=== PATIENT | male | born 1985 | race Caucasian/White ===

== ENCOUNTER 2017-05-18 15:24 | Inpatient (IN) | payer MEDICAID ==
[~2017-05-18] VITALS: Ht 175.3 cm; Wt 78.2 kg
[2017-05-18] MEDS ORDERED: LORAZEPAM 2MG/ML CPJ IV STA (15:56)
[2017-05-18] MEDS ORDERED: SODIUM CHLORIDE 0.9% 1,000 ML IV ONE (15:56)
[2017-05-18] MEDS ORDERED: LORAZEPAM 2MG/ML CPJ IV ONE ×2 (16:15→19:15)
[2017-05-18 16:22] LABS: CLARITY URINE CLEAR (CLEAR); COLOR URINE YELLOW (YELLOW); KETONES URINE 2+ (NEGATIVE); LEUKOCYTE ESTERASE URINE NEGATIVE (NEGATIVE); NITRITE URINE NEGATIVE (NEGATIVE); OCCULT BLOOD URINE NEGATIVE (NEGATIVE); PH URINE 7.5 (4.5-8.0); PROTEIN URINE 2+ (NEGATIVE)
[2017-05-18 16:34] LABS: *AMPHETAMINES SCREEN URINE NEGATIVE (NEGATIVE); *BARBITURATES SCREEN URINE NEGATIVE (NEGATIVE); *BENZODIAZEPINES SCREEN URINE NEGATIVE (NEGATIVE); *COCAINE SCREEN URINE NEGATIVE (NEGATIVE); CANNABINOID URINE SCREEN PRESUMTIVE POSITIVE (NEGATIVE); METHADONE URINE SCREEN NEGATIVE (NEGATIVE); PHENCYCLIDINE URINE SCREEN NEGATIVE (NEGATIVE)
[2017-05-18 16:36] LABS: BASOPHILS % 0.5 % (0.0-2.0); HEMATOCRIT. 46.6 % (42.0-52.0); HEMOGLOBIN. 15.8 g/dL (14.0-18.0); LYMPHOCYTES % 10.2 % (20.0-50.0); MEAN CORPUSCULAR HEMOGLOBIN 29.2 pg (28.0-32.0); MEAN CORPUSCULAR VOLUME 86.4 fL (80.0-94.0); MEAN PLATELET VOLUME 9.1 fl (7.4-10.4); MONOCYTES % 7.3 % (2.0-8.0); PLATELET 199 x1000/uL (130-400); RED BLOOD CELL COUNT 5.39 mill/uL (4.7-6.1); RED CELL DISTRIBUTION WIDTH 13.5 % (11.6-14.6)
[2017-05-18 16:42] LABS: BG BASE EXCESS 0.1 mmol/L (-2.0-2.0); BG CARBOXYHEMOGLOBIN 0.7 % (0.5-1.5); BG DEOXYHEMOGLOBIN 1.1 % (0.0-5.0); BG FRACTION INSPIRED OXYGEN 21; BG HCO3 ACT 17.6 mmol/L (22.0-26.0); BG METHEMOGLOBIN 0.5 % (0.0-1.5); BG OXYGEN SATURATION 98.9 % (92.0-98.5); BG OXYHEMOGLOBIN 97.7 % (94.0-97.0); BG PCO2 16.8 mmHg (35.0-45.0); BG PH 7.638 (7.350-7.450); BG PO2 130.3 mmHg (75.0-100.0); BG SAMPLE SITE LEFT BRACHIAL; BG TOTAL HEMOGLOBIN 16.1 g/dL (12.0-18.0); BG VENT MODE ROOM AIR
[2017-05-18 16:51] LABS: CARBON DIOXIDE 21 mEq/L (21-32); CHLORIDE 95 mEq/L (98-107); ETHANOL BLOOD 79 mg/dL; TROPONIN I < 0.02 ng/mL (0.00-0.04)
[2017-05-18 16:57] LABS: OPIATES URINE SCREEN NEGATIVE (NEGATIVE)
[2017-05-18 17:13] LABS: AMMONIA 53 uMol/L (<32)
[2017-05-18] MEDS ORDERED: ONDANSETRON HCL 4MG/2ML VIAL IV ONE ×2 (17:30→19:15)
[2017-05-18] MEDS ORDERED: KETOROLAC 30MG/ML VIAL IV ONE (17:30)
[2017-05-18] MEDS ORDERED: FOLIC ACID 1 MG, THIAMINE HCL 100 MG, MVI, ADULT NO.1 10 ML in DEXTROSE 5% WATER 1,000 ML IV ONE ×4 (19:30)
[2017-05-18] MEDS ORDERED: ONDANSETRON HCL 4MG/2ML VIAL IV PRN (22:00)
[2017-05-18] MEDS ORDERED: MAGNESIUM/ALUMINUM HYDROXIDE/SIMETHICONE 30ML UDC PO PRN (22:00)
[2017-05-18] MEDS ORDERED: CLONIDINE 0.1MG TABLET PO PRN (22:00)
[2017-05-18] MEDS ORDERED: ACETAMINOPHEN 325MG TABLET PO PRN (22:00)
[2017-05-18] MEDS ORDERED: LORAZEPAM 2MG/ML CPJ IV PRN (22:00)
[2017-05-18] MEDS ORDERED: IPRATROPIUM/ALBUTEROL 0.5-3(2.5)MG/3ML NEB INH PRN (22:00)
[2017-05-18] MEDS: CHLORDIAZEPOXIDE 25MG CAPSULE PO SCH (22:20)
[2017-05-18] MEDS: MORPHINE SULFATE 4 MG/ML CPJ (NOT FOR IM USE) IV PRN (22:48)
[2017-05-18] MEDS: SODIUM CHLORIDE 0.9% 1,000 ML IV SCH (22:50)
[2017-05-18 23:16] LABS: CREATINE KINASE 412 IU/L (39-308); CREATINE KINASE MB FRACTION 1.8 ng/mL (0.5-3.6); TROPONIN I < 0.02 ng/mL (0.00-0.04)
[2017-05-19] MEDS: MORPHINE SULFATE 4 MG/ML CPJ (NOT FOR IM USE) IV PRN ×4 (04:19→20:02)
[2017-05-19] MEDS: CHLORDIAZEPOXIDE 25MG CAPSULE PO SCH ×3 (06:08→21:40)
[2017-05-19 06:17] LABS: BASOPHILS % 0.5 % (0.0-2.0); EOSINOPHILS % 0.8 % (0.0-5.0); HEMATOCRIT. 42.5 % (42.0-52.0); HEMOGLOBIN. 14.5 g/dL (14.0-18.0); LYMPHOCYTES % 28.5 % (20.0-50.0); MEAN CORPUSCULAR HEMOGLOBIN 29.5 pg (28.0-32.0); MEAN CORPUSCULAR VOLUME 86.4 fL (80.0-94.0); MEAN PLATELET VOLUME 8.9 fl (7.4-10.4); MONOCYTES % 11.5 % (2.0-8.0); NEUTROPHILS % 58.7 % (40.0-76.0); PLATELET 156 x1000/uL (130-400); RED BLOOD CELL COUNT 4.92 mill/uL (4.7-6.1); RED CELL DISTRIBUTION WIDTH 13.4 % (11.6-14.6)
[2017-05-19 06:41] LABS: CHLORIDE 96 mEq/L (98-107)
[2017-05-19 06:50] LABS: CARBON DIOXIDE 30 mEq/L (21-32); CREATINE KINASE 370 IU/L (39-308); CREATINE KINASE MB FRACTION 1.9 ng/mL (0.5-3.6); HDL CHOLESTEROL 67 mg/dL (40-59); LDL CHOLESTEROL 106 mg/dL (5-100); TROPONIN I < 0.02 ng/mL (0.00-0.04)
[2017-05-19] MEDS: MULTIVITAMINS,THER W-MINERALS TABLET PO SCH (08:37)
[2017-05-19] MEDS: FOLIC ACID 1MG TABLET PO SCH (08:37)
[2017-05-19] MEDS: THIAMINE HCL 100MG TABLET PO SCH (08:37)
[2017-05-19] MEDS: SODIUM CHLORIDE 0.9% 1,000 ML IV SCH ×2 (13:56→18:30)
[2017-05-19] MEDS: LEVETIRACETAM 500MG TABLET PO SCH (21:40)
[2017-05-20] MEDS: MORPHINE SULFATE 4 MG/ML CPJ (NOT FOR IM USE) IV PRN (01:18)
[2017-05-20] MEDS: SODIUM CHLORIDE 0.9% 1,000 ML IV SCH (05:10)
[2017-05-20] MEDS: CHLORDIAZEPOXIDE 25MG CAPSULE PO SCH (06:02)
[2017-05-20] MEDS: LEVETIRACETAM 500MG TABLET PO SCH (08:36)
[2017-05-20] MEDS: THIAMINE HCL 100MG TABLET PO SCH (08:36)
[2017-05-20] MEDS: FOLIC ACID 1MG TABLET PO SCH (08:36)
[2017-05-20] MEDS: MULTIVITAMINS,THER W-MINERALS TABLET PO SCH (08:37)
[2017-05-20 10:00] VITALS: BP 134/98
== END 2017-05-20 10:07 | disposition home or self-care (01) | DRG 774 ==
LOC: ER 16:02 → 3WST 19:34 → ENRESERV 19:54
PROVIDERS: ADMIT Internal Medicine; ATTEND Internal Medicine
DX: F10.239 Alcohol dependence with withdrawal, unspecified (principal); F14.10 Cocaine abuse, uncomplicated; M62.82 Rhabdomyolysis; F19.10 Other psychoactive substance abuse, uncomplicated; E66.9 Obesity, unspecified; Z91.19 Patient's noncompliance with other medical treatment and regimen; Z68.25 Body mass index [BMI] 25.0-25.9, adult; Z71.41 Alcohol abuse counseling and surveillance of alcoholic; Z71.51 Drug abuse counseling and surveillance of drug abuser
CPT/HCPCS: 36415; 36600; 71010; 80053; 80061; 80305; 81001; 82140; 82375; 82550; 82553; 82805; 82962; 83735; 84443; 84484; 85025; 93005; 93970; 96361; 96374; 96375; 96376; 99285; G0482; J1885; J2060; J2270; J2405; J3411; J3490; J7030; J7040; J7070

== ENCOUNTER 2017-08-30 15:17 | Inpatient (IN) | payer MEDICAID ==
[~2017-08-30] VITALS: Ht 175.3 cm; Wt 79.9 kg
[2017-08-30] MEDS ORDERED: ONDANSETRON HCL 4MG/2ML VIAL IV STA ×2 (18:36→21:31)
[2017-08-30] MEDS ORDERED: SODIUM CHLORIDE 0.9% 1,000 ML IV ONE ×3 (18:36→20:56)
[2017-08-30] MEDS ORDERED: MORPHINE SULFATE 4 MG/ML CPJ (NOT FOR IM USE) IV STA ×2 (18:36→21:31)
[2017-08-30 18:55] LABS: CLARITY URINE CLEAR (CLEAR); COLOR URINE YELLOW (YELLOW); GLUCOSE URINE TRACE (NEGATIVE); KETONES URINE NEGATIVE (NEGATIVE); LEUKOCYTE ESTERASE URINE NEGATIVE (NEGATIVE); NITRITE URINE NEGATIVE (NEGATIVE); OCCULT BLOOD URINE NEGATIVE (NEGATIVE); PH URINE 7.5 (4.5-8.0); PROTEIN URINE NEGATIVE (NEGATIVE); SPECIFIC GRAVITY URINE 1.012 (1.005-1.030); UROBILINOGEN URINE 0.2 E.U./dL (0.2-1.0)
[2017-08-30 19:00] LABS: BASOPHILS % 0.5 % (0.0-2.0); EOSINOPHILS % 0.1 % (0.0-5.0); HEMATOCRIT. 45.5 % (42.0-52.0); HEMOGLOBIN. 15.6 g/dL (14.0-18.0); MEAN CORPUSCULAR VOLUME 87.3 fL (80.0-94.0); MEAN PLATELET VOLUME 8.5 fl (7.4-10.4); MONOCYTES % 6.7 % (2.0-8.0); NEUTROPHILS % 64.7 % (40.0-76.0); PLATELET 217 x1000/uL (130-400); RED BLOOD CELL COUNT 5.21 mill/uL (4.7-6.1); RED CELL DISTRIBUTION WIDTH 13.3 % (11.6-14.6)
[2017-08-30 19:02] LABS: PROTHROMBIN TIME 10.6 sec (9.4-11.6)
[2017-08-30 19:12] LABS: CARBON DIOXIDE 27 mEq/L (21-32); CHLORIDE 102 mEq/L (98-107); ETHANOL BLOOD 157 mg/dL
[2017-08-30 19:12] LABS: *AMPHETAMINES SCREEN URINE NEGATIVE (NEGATIVE); *BARBITURATES SCREEN URINE NEGATIVE (NEGATIVE); *BENZODIAZEPINES SCREEN URINE NEGATIVE (NEGATIVE); *COCAINE SCREEN URINE NEGATIVE (NEGATIVE); CANNABINOID URINE SCREEN PRESUMTIVE POSITIVE (NEGATIVE); METHADONE URINE SCREEN NEGATIVE (NEGATIVE); OPIATES URINE SCREEN NEGATIVE (NEGATIVE); PHENCYCLIDINE URINE SCREEN NEGATIVE (NEGATIVE)
[2017-08-30 21:15] LABS: BASOPHILS % 0.5 % (0.0-2.0); EOSINOPHILS % 0.2 % (0.0-5.0); HEMATOCRIT. 41.2 % (42.0-52.0); HEMOGLOBIN. 14.1 g/dL (14.0-18.0); LYMPHOCYTES % 29.5 % (20.0-50.0); MEAN CORPUSCULAR VOLUME 87.7 fL (80.0-94.0); MEAN PLATELET VOLUME 8.5 fl (7.4-10.4); MONOCYTES % 7.6 % (2.0-8.0); NEUTROPHILS % 62.2 % (40.0-76.0); PLATELET 197 x1000/uL (130-400); RED CELL DISTRIBUTION WIDTH 13.3 % (11.6-14.6)
[2017-08-30] MEDS ORDERED: LEVOFLOXACIN 750MG PREMIX 150 ML IV ONE (22:00)
[2017-08-31] VITALS (13 sets, daily range): BP systolic 121–145; BP diastolic 69–91
[2017-08-31] MEDS ORDERED: ACETAMINOPHEN 325MG TABLET PO PRN
[2017-08-31] MEDS ORDERED: MAGNESIUM/ALUMINUM HYDROXIDE/SIMETHICONE 30ML UDC PO PRN
[2017-08-31] MEDS ORDERED: IPRATROPIUM/ALBUTEROL 0.5-3(2.5)MG/3ML NEB INH PRN
[2017-08-31] MEDS ORDERED: CLONIDINE 0.1MG TABLET PO PRN
[2017-08-31] MEDS: SODIUM CHLORIDE 0.9% 1,000 ML IV SCH ×3 (00:35→12:17)
[2017-08-31] MEDS: ONDANSETRON HCL 4MG/2ML VIAL IV PRN ×2 (00:36→06:16)
[2017-08-31] MEDS ORDERED: PANTOPRAZOLE 80 MG in SODIUM CHLORIDE 0.9% 100 ML IV SCH ×3 (01:00→09:45)
[2017-08-31] MEDS ORDERED: LORA1TAB PO (05:12)
[2017-08-31] MEDS ORDERED: MVI, ADULT NO.1 10 ML, FOLIC ACID 1 MG, THIAMINE HCL 100 MG in SODIUM CHLORIDE 0.9% 1,0... IV SCH ×4 (06:00)
[2017-08-31] MEDS: CHLORDIAZEPOXIDE 25MG CAPSULE PO SCH ×3 (06:12→21:57)
[2017-08-31 06:49] LABS: BASOPHILS % 0.3 % (0.0-2.0); HEMATOCRIT. 43.2 % (42.0-52.0); HEMOGLOBIN. 14.7 g/dL (14.0-18.0); LYMPHOCYTES % 8.6 % (20.0-50.0); MEAN CORPUSCULAR HEMOGLOBIN 29.8 pg (28.0-32.0); MEAN CORPUSCULAR VOLUME 87.9 fL (80.0-94.0); MEAN PLATELET VOLUME 8.9 fl (7.4-10.4); MONOCYTES % 7.3 % (2.0-8.0); NEUTROPHILS % 83.8 % (40.0-76.0); PLATELET 209 x1000/uL (130-400); RED BLOOD CELL COUNT 4.91 mill/uL (4.7-6.1); RED CELL DISTRIBUTION WIDTH 13.2 % (11.6-14.6)
[2017-08-31 08:02] LABS: CREATINE KINASE 322 IU/L (39-308); CREATINE KINASE MB FRACTION 0.8 ng/mL (0.5-3.6); TROPONIN I < 0.02 ng/mL (0.00-0.04)
[2017-08-31 08:44] LABS: CARBON DIOXIDE 25 mEq/L (21-32); CHLORIDE 101 mEq/L (98-107); HDL CHOLESTEROL 47 mg/dL (40-59); LDL CHOLESTEROL 88 mg/dL (5-100)
[2017-08-31] MEDS ORDERED: INFLUENZA VIRUS VACCINE 0.5ML SYR IM ONE (09:00)
[2017-08-31] MEDS ORDERED: PNEUMOCOCCAL 23-VAL P-SAC VAC 0.5 ML IM ONE (09:00)
[2017-08-31] MEDS ORDERED: METOCLOPRAMIDE HCL 10MG/2ML VIAL IV PRN (09:15)
[2017-08-31] MEDS ORDERED: HYDROCODONE/ACETAMINOPHEN 5/325MG TABLET PO PRN (09:45)
[2017-08-31] MEDS: OCTREOTIDE 1,000 MCG in SODIUM CHLORIDE 0.9% 98 ML IV SCH (12:16)
[2017-08-31] MEDS: MORPHINE SULFATE 2 MG/ML CPJ (NOT FOR IM USE) IV PRN ×2 (12:20→19:52)
[2017-08-31] MEDS: PANTOPRAZOLE 80 MG in SODIUM CHLORIDE 0.9% 100 ML IV SCH (13:30)
[2017-08-31 15:39] LABS: HEMATOCRIT 44.2 % (42.0-52.0); HEMOGLOBIN 14.7 g/dL (14.0-18.0)
[2017-08-31 15:55] LABS: CREATINE KINASE 253 IU/L (39-308); TROPONIN I < 0.02 ng/mL (0.00-0.04)
[2017-08-31 15:56] LABS: CREATINE KINASE MB FRACTION 0.8 ng/mL (0.5-3.6)
[2017-08-31] MEDS: LORAZEPAM 2MG/ML CPJ IV PRN (21:20)
[2017-09-01] VITALS (9 sets, daily range): BP systolic 107–139; BP diastolic 73–79
[2017-09-01] MEDS: PANTOPRAZOLE 80 MG in SODIUM CHLORIDE 0.9% 100 ML IV SCH ×2 (00:11→10:21)
[2017-09-01] MEDS: SODIUM CHLORIDE 0.9% 1,000 ML IV SCH ×2 (00:55→09:42)
[2017-09-01] MEDS: CHLORDIAZEPOXIDE 25MG CAPSULE PO SCH ×2 (06:04→13:56)
[2017-09-01] MEDS ORDERED: THIAMINE HCL 100MG TABLET PO SCH (09:00)
[2017-09-01] MEDS ORDERED: MULTIVITAMINS,THER W-MINERALS TABLET PO SCH (09:00)
[2017-09-01] MEDS ORDERED: FOLIC ACID 1MG TABLET PO SCH (09:00)
[2017-09-01] MEDS: LORAZEPAM 2MG/ML CPJ IV PRN (09:36)
[2017-09-01] MEDS: OCTREOTIDE 1,000 MCG in SODIUM CHLORIDE 0.9% 98 ML IV SCH (10:21)
[2017-09-01] MEDS ORDERED: PROT40 PO (11:41)
[2017-09-01] MEDS ORDERED: FOLI-43 PO (11:41)
[2017-09-01] MEDS ORDERED: THIA100T72 PO (11:41)
[2017-09-01] MEDS ORDERED: INFLUENZA VIRUS VACCINE 0.5ML SYR IM ONE (16:30)
[2017-09-01] MEDS ORDERED: PNEUMOCOCCAL 23-VAL P-SAC VAC 0.5 ML IM ONE (16:30)
== END 2017-09-01 17:05 | disposition home or self-care (01) | DRG 241 ==
LOC: ER 20:33 → 3WST 22:07 → EDBEDREQ 23:15 → EDBEDREQSVC 08-31 00:18 → ENRESERV 08-31 02:08
PROVIDERS: ADMIT Internal Medicine; ATTEND Internal Medicine
DX: K29.21 Alcoholic gastritis with bleeding (principal); K76.0 Fatty (change of) liver, not elsewhere classified; K92.0 Hematemesis; D64.9 Anemia, unspecified; D72.829 Elevated white blood cell count, unspecified; E78.1 Pure hyperglyceridemia; F12.90 Cannabis use, unspecified, uncomplicated; Y90.6 Blood alcohol level of 120-199 mg/100 ml; F10.220 Alcohol dependence with intoxication, uncomplicated; F14.10 Cocaine abuse, uncomplicated; F10.288 Alcohol dependence with other alcohol-induced disorder; Z83.3 Family history of diabetes mellitus; Z79.899 Other long term (current) drug therapy
CPT/HCPCS: 36415; 71010; 74176; 76700; 80053; 80061; 80305; 81001; 82270; 82550; 82553; 83690; 83735; 84484; 85014; 85018; 85025; 85610; 86850; 86900; 87040; 90686; 90732; 93005; 93970; 96365; 96375; 96376; 99285; C9113; G0482; J1956; J2060; J2270; J2354; J2405; J3411; J3490; J7030; J7050

== ENCOUNTER 2017-11-22 15:45 | Emergency (ER) | payer MEDICAID ==
[~2017-11-22] VITALS: Ht 172.7 cm; Wt 71.0 kg
[~2017-11-22 15:45] MED LIST: FOLI-43 PO; LORA1TAB PO; PROT40 PO; THIA100T72 PO
[2017-11-22] MEDS ORDERED: ONDANSETRON 4MG ODT PO PRN (16:00)
[2017-11-22] MEDS ORDERED: MORPHINE SULFATE 4 MG/ML CPJ (NOT FOR IM USE) IV ONE (16:53)
[2017-11-22] MEDS: MORPHINE SULFATE 4 MG/ML CPJ (NOT FOR IM USE) IV PRN ×3 (17:07→20:22)
[2017-11-22] MEDS ORDERED: CEFAZOLIN 1000MG PREMIX 50 ML IV ONE (17:15)
[2017-11-22] MEDS ORDERED: TETANUS AND DIPHTHERIA TOX/PF 0.5ML SYR (ADULT) IM ONE (17:15)
[2017-11-22] MEDS ORDERED: TETANUS, DIPHTHERIA, PERTUSSIS VAC/PF 0.5ML (>7YR OLD) IM ONE (19:00)
[2017-11-22 20:06] LABS: BASOPHILS % 0.2 % (0.0-2.0); EOSINOPHILS % 0.1 % (0.0-5.0); HEMATOCRIT. 43.3 % (42.0-52.0); HEMOGLOBIN. 14.3 g/dL (14.0-18.0); LYMPHOCYTES % 9.2 % (20.0-50.0); MEAN CORPUSCULAR HEMOGLOBIN 29.4 pg (28.0-32.0); MEAN CORPUSCULAR VOLUME 88.8 fL (80.0-94.0); MEAN PLATELET VOLUME 9.2 fl (7.4-10.4); MONOCYTES % 7.2 % (2.0-8.0); NEUTROPHILS % 83.3 % (40.0-76.0); PLATELET 223 x1000/uL (130-400); RED BLOOD CELL COUNT 4.88 mill/uL (4.7-6.1); RED CELL DISTRIBUTION WIDTH 13.4 % (11.6-14.6)
[2017-11-22 20:10] LABS: CHLORIDE 105 mEq/L (98-107)
[2017-11-22 20:13] LABS: PROTHROMBIN TIME 10.7 sec (9.4-11.6)
[2017-11-22 20:16] LABS: CARBON DIOXIDE 28 mEq/L (21-32)
[2017-11-22 20:32] VITALS: BP 111/89
== END 2017-11-22 21:00 | disposition short-term general hospital (02) ==
LOC: ER 15:51
DX: S82.101B Unspecified fracture of upper end of right tibia, initial encounter for open fracture type I or II (principal); S82.831B Other fracture of upper and lower end of right fibula, initial encounter for open fracture type I or II; F10.20 Alcohol dependence, uncomplicated; F12.10 Cannabis abuse, uncomplicated; V87.8XXA Person injured in other specified noncollision transport accidents involving motor vehicle (traffic), initial encounter; Y93.55 Activity, bike riding; Y92.89 Other specified places as the place of occurrence of the external cause; Y99.8 Other external cause status
CPT/HCPCS: 29505; 36415; 73590; 80048; 85025; 85610; 90471; 90715; 96365; 96375; 96376; 99285; J0690; J2270; Q0162; Z7610; 90714

== ENCOUNTER 2018-02-18 20:13 | Emergency (ER) | payer MEDICAID ==
[~2018-02-18] VITALS: Ht 175.3 cm; Wt 73.0 kg
[2018-02-19] MEDS ORDERED: HYDROCODONE/ACETAMINOPHEN 5/325MG TABLET PO ONE (04:15)
[2018-02-19 04:20] VITALS: BP 111/78
== END 2018-02-19 05:05 | disposition home or self-care (01) ==
LOC: ER 20:16
DX: G89.18 Other acute postprocedural pain (principal); M25.561 Pain in right knee
CPT/HCPCS: 93971; 99284

== ENCOUNTER 2021-01-13 11:17 | Emergency (ER) | payer MEDICAID ==
[~2021-01-13] VITALS: Ht 175.3 cm; Wt 80.0 kg
[2021-01-13] MEDS ORDERED: CHLORDIAZEPOXIDE 25MG CAPSULE PO ONE (11:45)
[2021-01-13] MEDS ORDERED: SODIUM CHLORIDE 0.9% 1,000 ML IV ONE ×2 (11:45→13:15)
[2021-01-13] MEDS ORDERED: LIDOCAINE HCL/PF 1% 10 MG/ML 5ML VIAL IJ ONE (11:45)
[2021-01-13] MEDS ORDERED: BACITRACIN ZINC OINT UDPKT TOP ONE (11:45)
[2021-01-13] MEDS ORDERED: TETANUS, DIPHTHERIA, PERTUSSIS VAC/PF 0.5ML (>7YR OLD) IM ONE (11:45)
[2021-01-13 11:55] LABS: BASOPHILS % 0.2 % (0.0-2.0); EOSINOPHILS % 0.2 % (0.0-5.0); HEMATOCRIT. 46.2 % (42.0-52.0); HEMOGLOBIN. 15.2 g/dL (14.0-18.0); LYMPHOCYTES % 18.6 % (20.0-50.0); MEAN CORPUSCULAR HEMOGLOBIN 31.2 pg (28.0-32.0); MEAN PLATELET VOLUME 9.9 fl (7.4-10.4); MONOCYTES % 9.8 % (2.0-8.0); NEUTROPHILS % 71.2 % (40.0-76.0); PLATELET 158 x1000/uL (130-400); RED BLOOD CELL COUNT 4.86 mill/uL (4.7-6.1); RED CELL DISTRIBUTION WIDTH 13.5 % (11.6-14.6)
[2021-01-13 12:02] LABS: CHLORIDE 95 mEq/L (98-107)
[2021-01-13 12:05] LABS: INR 1.1; PROTHROMBIN TIME 11.7 sec (9.6-11.0)
[2021-01-13 15:42] LABS: CHLORIDE 106 mEq/L (98-107)
[2021-01-13 15:47] LABS: ETHANOL BLOOD < 10 mg/dL
[2021-01-13 16:02] LABS: CLARITY URINE CLEAR (CLEAR); COLOR URINE YELLOW (YELLOW); KETONES URINE 1+ (NEGATIVE); LEUKOCYTE ESTERASE URINE NEGATIVE (NEGATIVE); NITRITE URINE NEGATIVE (NEGATIVE); OCCULT BLOOD URINE NEGATIVE (NEGATIVE); PH URINE 6.5 (4.5-8.0); PROTEIN URINE NEGATIVE (NEGATIVE); SPECIFIC GRAVITY URINE 1.006 (1.005-1.030); UROBILINOGEN URINE 0.2 E.U./dL (0.2-1.0)
[2021-01-13 16:24] LABS: *AMPHETAMINES SCREEN URINE NEGATIVE (NEGATIVE); *BARBITURATES SCREEN URINE NEGATIVE (NEGATIVE); *BENZODIAZEPINES SCREEN URINE NEGATIVE (NEGATIVE); *COCAINE SCREEN URINE NEGATIVE (NEGATIVE); CANNABINOID URINE SCREEN PRESUMTIVE POSITIVE (NEGATIVE); METHADONE URINE SCREEN NEGATIVE (NEGATIVE); OPIATES URINE SCREEN NEGATIVE (NEGATIVE); PHENCYCLIDINE URINE SCREEN NEGATIVE (NEGATIVE)
[2021-01-13] MEDS ORDERED: POTASSIUM CHLORIDE 20MEQ TABLET SR PO ONE (16:30)
[2021-01-13 16:47] VITALS: BP 122/76
[2021-01-14] MEDS ORDERED: THIA100T72 MT (13:16)
[2021-01-14] MEDS ORDERED: CHLO25CA10 MT (13:16)
[2021-01-14] MEDS ORDERED: KEPP500 MT (13:17)
== END 2021-01-13 16:48 | disposition home or self-care (01) ==
LOC: ER 11:25 → EDBEDREQ 15:20 → EDBEDREQTM 15:20 → ENRESERV 16:03 → CANRESERV 16:03 → CANBEDREQ 16:23 → ER 16:48
DX: F10.232 Alcohol dependence with withdrawal with perceptual disturbance (principal); G40.509 Epileptic seizures related to external causes, not intractable, without status epilepticus; S01.81XA Laceration without foreign body of other part of head, initial encounter; E87.2 Acidosis; R03.0 Elevated blood-pressure reading, without diagnosis of hypertension; K70.10 Alcoholic hepatitis without ascites; E87.6 Hypokalemia; F12.10 Cannabis abuse, uncomplicated; Y90.0 Blood alcohol level of less than 20 mg/100 ml; W01.0XXA Fall on same level from slipping, tripping and stumbling without subsequent striking against object, initial encounter; Y93.89 Activity, other specified; Y92.018 Other place in single-family (private) house as the place of occurrence of the external cause
CPT/HCPCS: 12013; 36415; 70450; 71045; 80048; 80053; 80305; 80320; 81003; 83605; 85025; 85610; 87040; 90471; 90715; 93005; 96360; 99285; A4217; J3490; J7030; Z7610; G0480

== ENCOUNTER 2021-01-13 20:03 | Inpatient (IN) | payer MEDICAID, OTHER ==
[~2021-01-13] VITALS: Ht 172.7 cm; Wt 77.1 kg
[2021-01-13] MEDS ORDERED: FOLIC ACID 1 MG, THIAMINE HCL 100 MG, MVI, ADULT NO.1 10 ML in DEXTROSE 5% WATER 1,000 ML IV ONE (20:30)
[2021-01-13] MEDS ORDERED: ACETAMINOPHEN 325MG TABLET PO ONE (20:30)
[2021-01-13] MEDS ORDERED: LORAZEPAM 2MG/ML CPJ IV ONE (20:30)
[2021-01-13] MEDS ORDERED: BACITRACIN ZINC OINT UDPKT TOP ONE (21:00)
[2021-01-13] MEDS ORDERED: MULTIVITAMINS,THER W-MINERALS TABLET PO SCH (21:15)
[2021-01-13] MEDS ORDERED: FOLIC ACID 1 MG, THIAMINE HCL 100 MG in DEXTROSE 5% WATER 1,000 ML IV NR (21:30)
[2021-01-13 21:38] LABS: HEMATOCRIT. 40.4 % (42.0-52.0); MEAN CORPUSCULAR HEMOGLOBIN 31.5 pg (28.0-32.0); MEAN CORPUSCULAR VOLUME 91.1 fL (80.0-94.0); MEAN PLATELET VOLUME 9.6 fl (7.4-10.4); PLATELET 131 x1000/uL (130-400); RED BLOOD CELL COUNT 4.43 mill/uL (4.7-6.1); RED CELL DISTRIBUTION WIDTH 13.2 % (11.6-14.6)
[2021-01-13 21:44] LABS: CHLORIDE 103 mEq/L (98-107)
[2021-01-13 21:48] LABS: ETHANOL BLOOD < 10 mg/dL
[2021-01-13 22:11] LABS: PLATELET ESTIMATE NORMAL
[2021-01-13] MEDS ORDERED: LEVETIRACETAM 1000MG PREMIX 100 ML IV ONE (22:45)
[2021-01-14 00:30] VITALS: BP 117/78
[2021-01-14] MEDS ORDERED: HYDROCODONE/ACETAMINOPHEN 5/325MG TABLET PO PRN (01:45)
[2021-01-14] MEDS ORDERED: LORAZEPAM 2MG/ML CPJ IV PRN (01:45)
[2021-01-14 04:00] VITALS: BP 108/69
[2021-01-14 06:08] LABS: BASOPHILS % 0.3 % (0.0-2.0); EOSINOPHILS % 0.2 % (0.0-5.0); HEMATOCRIT. 38.4 % (42.0-52.0); HEMOGLOBIN. 13.3 g/dL (14.0-18.0); LYMPHOCYTES % 15.3 % (20.0-50.0); MEAN CORPUSCULAR HEMOGLOBIN 31.9 pg (28.0-32.0); MEAN CORPUSCULAR VOLUME 91.7 fL (80.0-94.0); MONOCYTES % 12.5 % (2.0-8.0); NEUTROPHILS % 71.7 % (40.0-76.0); PLATELET 118 x1000/uL (130-400); RED BLOOD CELL COUNT 4.19 mill/uL (4.7-6.1); RED CELL DISTRIBUTION WIDTH 13.6 % (11.6-14.6)
[2021-01-14 06:16] LABS: CHLORIDE 103 mEq/L (98-107)
[2021-01-14 06:28] LABS: AMYLASE 134 IU/L (25-115)
[2021-01-14] MEDS ORDERED: PANTOPRAZOLE 40MG DR TABLET PO SCH (07:10)
[2021-01-14 08:00] VITALS: BP 123/81
[2021-01-14] MEDS ORDERED: MULTIVITAMINS,THER W-MINERALS TABLET PO SCH (09:00)
[2021-01-14] MEDS ORDERED: CHLORDIAZEPOXIDE 25MG CAPSULE PO SCH (09:00)
[2021-01-14] MEDS ORDERED: LEVETIRACETAM 500MG TABLET PO SCH (09:00)
[2021-01-14] MEDS ORDERED: THIAMINE HCL 100MG TABLET PO SCH (09:00)
[2021-01-14] MEDS ORDERED: FOLIC ACID 1MG TABLET PO SCH (09:00)
[2021-01-14 12:00] VITALS: BP 123/81
[2021-01-14 12:29] VITALS: BP 123/80
[2021-01-14] MEDS ORDERED: THIA100T72 MT (13:16)
[2021-01-14] MEDS ORDERED: CHLO25CA10 MT (13:16)
[2021-01-14] MEDS ORDERED: KEPP500 MT (13:17)
== END 2021-01-14 13:45 | disposition home or self-care (01) | DRG 53 ==
LOC: ER 20:03 → 8WST 22:34 → EDBEDREQ 22:42 → EDBEDREQTM 22:42 → ENRESERV 22:55
PROVIDERS: ADMIT Internal Medicine; ATTEND Internal Medicine
DX: R56.9 Unspecified convulsions (principal); F10.20 Alcohol dependence, uncomplicated; F17.200 Nicotine dependence, unspecified, uncomplicated; S00.31XA Abrasion of nose, initial encounter; X58.XXXA Exposure to other specified factors, initial encounter; Y93.89 Activity, other specified; Y92.89 Other specified places as the place of occurrence of the external cause; Y99.8 Other external cause status; Z79.899 Other long term (current) drug therapy
CPT/HCPCS: 36415; 80048; 80053; 80320; 82150; 83735; 84484; 85025; 93005; 99285; J1953; J2060; J3411; J3490; J7070; G0480

== ENCOUNTER 2021-01-26 18:20 | Emergency (ER) | payer OTHER ==
[~2021-01-26] VITALS: Ht 172.7 cm; Wt 84.0 kg
[~2021-01-26 18:20] MED LIST changes: +CHLO25CA10 MT; +KEPP500 MT; -LORA1TAB PO; +THIA100T72 MT
[2021-01-26] MEDS ORDERED: ACETAMINOPHEN 325MG TABLET PO ONE (20:15)
[2021-01-26 22:10] VITALS: BP 118/77
== END 2021-01-26 22:12 | disposition home or self-care (01) ==
LOC: ER 18:20
DX: S20.212A Contusion of left front wall of thorax, initial encounter (principal); S16.1XXA Strain of muscle, fascia and tendon at neck level, initial encounter; V49.9XXA Car occupant (driver) (passenger) injured in unspecified traffic accident, initial encounter; Y93.89 Activity, other specified; Y92.89 Other specified places as the place of occurrence of the external cause; Y99.8 Other external cause status
CPT/HCPCS: 71101; 99283

== ENCOUNTER 2021-05-21 17:36 | Emergency (ER) | payer MEDICAID, OTHER ==
[~2021-05-21] VITALS: Ht 170.2 cm; Wt 82.0 kg
[2021-05-21 19:09] LABS: BASOPHILS % 0.2 % (0.0-2.0); EOSINOPHILS % 1.6 % (0.0-5.0); HEMATOCRIT. 41.8 % (42.0-52.0); HEMOGLOBIN. 14.4 g/dL (14.0-18.0); LYMPHOCYTES % 21.3 % (20.0-50.0); MEAN CORPUSCULAR HEMOGLOBIN 31.4 pg (28.0-32.0); MEAN CORPUSCULAR VOLUME 91.5 fL (80.0-94.0); MEAN PLATELET VOLUME 9.1 fl (7.4-10.4); MONOCYTES % 6.6 % (2.0-8.0); NEUTROPHILS % 70.3 % (40.0-76.0); PLATELET 157 x1000/uL (130-400); RED BLOOD CELL COUNT 4.57 mill/uL (4.7-6.1); RED CELL DISTRIBUTION WIDTH 13.6 % (11.6-14.6)
[2021-05-21 19:18] LABS: CHLORIDE 106 mEq/L (98-107)
[2021-05-21 20:42] LABS: ETHANOL BLOOD 239 mg/dL
[2021-05-21 20:58] LABS: *AMPHETAMINES SCREEN URINE NEGATIVE (NEGATIVE); *BARBITURATES SCREEN URINE NEGATIVE (NEGATIVE)
[2021-05-21 20:59] LABS: *BENZODIAZEPINES SCREEN URINE PRESUMTIVE POSITIVE (NEGATIVE); *COCAINE SCREEN URINE PRESUMTIVE POSITIVE (NEGATIVE); CANNABINOID URINE SCREEN PRESUMTIVE POSITIVE (NEGATIVE); METHADONE URINE SCREEN NEGATIVE (NEGATIVE); OPIATES URINE SCREEN NEGATIVE (NEGATIVE); PHENCYCLIDINE URINE SCREEN NEGATIVE (NEGATIVE)
[2021-05-21] MEDS ORDERED: SODIUM CHLORIDE 0.9% 500 ML IV ONE (22:00)
[2021-05-21 23:37] VITALS: BP 126/77
== END 2021-05-21 23:37 | disposition home or self-care (01) ==
LOC: ER 17:36
DX: S20.212A Contusion of left front wall of thorax, initial encounter (principal); T42.4X1A Poisoning by benzodiazepines, accidental (unintentional), initial encounter; F13.20 Sedative, hypnotic or anxiolytic dependence, uncomplicated; F10.20 Alcohol dependence, uncomplicated; Y90.7 Blood alcohol level of 200-239 mg/100 ml; R03.0 Elevated blood-pressure reading, without diagnosis of hypertension; Y93.89 Activity, other specified; R74.01 Elevation of levels of liver transaminase levels; G40.909 Epilepsy, unspecified, not intractable, without status epilepticus; F12.90 Cannabis use, unspecified, uncomplicated; W01.0XXA Fall on same level from slipping, tripping and stumbling without subsequent striking against object, initial encounter; Y92.89 Other specified places as the place of occurrence of the external cause
CPT/HCPCS: 36415; 70450; 71045; 80053; 80305; 80320; 83605; 83690; 83880; 84484; 85025; 86850; 86900; 86901; 93005; 96360; 99285; J7040; G0480

== ENCOUNTER 2021-10-27 19:07 | Emergency (ER) | payer MEDICAID, OTHER ==
[~2021-10-27] VITALS: Ht 157.5 cm; Wt 68.0 kg
[2021-10-27] MEDS ORDERED: LORAZEPAM 2MG/ML CPJ IV STA (20:39)
[2021-10-27] MEDS ORDERED: SODIUM CHLORIDE 0.9% 1,000 ML IV ONE (20:45)
[2021-10-27] MEDS ORDERED: LEVETIRACETAM 500MG PREMIX 100 ML IV ONE (20:45)
[2021-10-27 22:05] LABS: BASOPHILS % 0.2 % (0.0-2.0); HEMOGLOBIN. 14.2 g/dL (14.0-18.0); LYMPHOCYTES % 7.4 % (20.0-50.0); MEAN CORPUSCULAR HEMOGLOBIN 29.6 pg (28.0-32.0); MEAN CORPUSCULAR VOLUME 89.2 fL (80.0-94.0); MONOCYTES % 11.5 % (2.0-8.0); NEUTROPHILS % 80.9 % (40.0-76.0); PLATELET 166 x1000/uL (130-400); RED BLOOD CELL COUNT 4.82 mill/uL (4.7-6.1)
[2021-10-27 22:08] LABS: CHLORIDE 99 mEq/L (98-107)
[2021-10-27 22:12] LABS: ETHANOL BLOOD < 10 mg/dL
[2021-10-27] MEDS ORDERED: ONDANSETRON HCL 4MG/2ML INJ IV ONE (22:45)
[2021-10-28 00:30] VITALS: BP 110/64
== END 2021-10-28 01:07 | disposition short-term general hospital (02) ==
LOC: ER 19:07
DX: F10.239 Alcohol dependence with withdrawal, unspecified (principal); Y90.0 Blood alcohol level of less than 20 mg/100 ml; R56.9 Unspecified convulsions; F12.10 Cannabis abuse, uncomplicated; Z79.899 Other long term (current) drug therapy
CPT/HCPCS: 36415; 70450; 71045; 72125; 80053; 80320; 83690; 83735; 84484; 85025; 93005; 96365; 96366; 96375; 99285; J1953; J2060; J7030; Z7610; G0480

== ENCOUNTER 2022-01-01 08:57 | Inpatient (IN) | payer MEDICAID, OTHER ==
[2022-01-01] VITALS (51 sets, daily range): BP systolic 71–150; BP diastolic 30–117
[~2022-01-01] VITALS: Ht 175.3 cm; Wt 82.7 kg
[~2022-01-01 08:57] MED LIST changes: +ADENOSINE 3 MG/ML 2ML VIAL IV ONE; +AMIODARONE HCL 50MG/ML 3ML VIAL IV ONE; +CALCIUM CHLORIDE 1GM/10ML SYR IV ONE; +DEXTROSE 50% WATER 50ML SYRINGE IV ONE; +EPINEPHRINE 0.1MG/ML (1:10,000) 10ML SYR ONE; +MAGNESIUM SULFATE 4G IN WATER 100ML PREMIX IV ONE; +SODIUM BICARBONATE 8.4% 1 MEQ/ML 50ML SYR IV ONE
[2022-01-01] MEDS ORDERED: DEXTROSE 50% WATER 50ML SYRINGE IV ONE (09:12)
[2022-01-01] MEDS ORDERED: PIPERACILLIN/TAZ 3.375G PREMIX 50 ML IV ONE (09:30)
[2022-01-01] MEDS ORDERED: HYDROCORTISONE SOD SUCCINATE 100 MG/2 ML VIAL IV ONE (09:30)
[2022-01-01] MEDS ORDERED: SODIUM CHLORIDE 0.9% 1000ML BAG (SEPSIS BOLUS) IV ONE (09:30)
[2022-01-01] MEDS ORDERED: EPINEPHRINE 10 MG in SODIUM CHLORIDE 0.9% 240 ML IV PRN ×4 (09:30)
[2022-01-01] MEDS ORDERED: PROPOFOL 10MG/ML 100ML 100 ML IV PRN (09:30)
[2022-01-01] MEDS ORDERED: VANCOMYCIN 1G PREMIX 200 ML IV ONE (09:30)
[2022-01-01] MEDS ORDERED: VANCOMYCIN 1GM PMX (XELLIA) 200 ML IV ONE (09:45)
[2022-01-01 09:53] LABS: BG BASE EXCESS -17.8 mmol/L (-2.0-2.0); BG CARBOXYHEMOGLOBIN 0.6 % (0.5-1.5); BG DEOXYHEMOGLOBIN 0.2 % (0.0-5.0); BG HCO3 ACT 10.7 mmol/L (22.0-26.0); BG METHEMOGLOBIN 0.2 % (0.0-1.5); BG OXYGEN SATURATION 99.8 % (92.0-98.5); BG PCO2 34.5 mmHg (35.0-45.0); BG PO2 383.3 mmHg (75.0-100.0); BG SAMPLE SITE RIGHT RADIAL; BG TOTAL HEMOGLOBIN 13.9 g/dL (12.0-18.0); BG VENT MODE VENT - AC
[2022-01-01 10:39] LABS: HEMATOCRIT. 40.1 % (42.0-52.0); HEMOGLOBIN. 12.8 g/dL (14.0-18.0); MEAN CORPUSCULAR HEMOGLOBIN 30.1 pg (28.0-32.0); MEAN CORPUSCULAR VOLUME 94.2 fL (80.0-94.0); MEAN PLATELET VOLUME 8.2 fl (7.4-10.4); PLATELET 209 x1000/uL (130-400); RED BLOOD CELL COUNT 4.26 mill/uL (4.7-6.1); RED CELL DISTRIBUTION WIDTH 13.9 % (11.6-14.6)
[2022-01-01 10:48] LABS: CHLORIDE 101 mEq/L (98-107)
[2022-01-01 10:51] LABS: INR 1.1; PARTIAL THROMBOPLASTIN TIME 27.8 sec (23.4-31.0)
[2022-01-01 10:54] LABS: C REACTIVE PROTEIN QUANT 1.6 mg/L (0.0-3.0); ETHANOL BLOOD < 10 mg/dL
[2022-01-01 10:58] LABS: CREATINE KINASE 243 IU/L (39-308)
[2022-01-01 11:07] LABS: CLARITY URINE CLEAR (CLEAR); COLOR URINE YELLOW (YELLOW); KETONES URINE NEGATIVE (NEGATIVE); LEUKOCYTE ESTERASE URINE NEGATIVE (NEGATIVE); NITRITE URINE NEGATIVE (NEGATIVE); OCCULT BLOOD URINE 2+ (NEGATIVE); PH URINE 6.5 (4.5-8.0); PROTEIN URINE 2+ (NEGATIVE); SPECIFIC GRAVITY URINE 1.009 (1.005-1.030); UROBILINOGEN URINE 0.2 E.U./dL (0.2-1.0)
[2022-01-01 11:15] LABS: *AMPHETAMINES SCREEN URINE NEGATIVE (NEGATIVE); *BARBITURATES SCREEN URINE NEGATIVE (NEGATIVE)
[2022-01-01] MEDS ORDERED: NOREPINEPHRINE 8 MG in DEXT 5% WATER 242 ML IV PRN (11:15)
[2022-01-01] MEDS ORDERED: FENTANYL CITRATE/PF 1,000 MCG in SODIUM CHLORIDE 0.9% 80 ML IV PRN (11:15)
[2022-01-01] MEDS ORDERED: LEVETIRACETAM 500MG PREMIX 100 ML IV ONE ×2 (11:15)
[2022-01-01] MEDS ORDERED: DEXT 5%/0.9% NACL 1,000 ML IV ONE (11:15)
[2022-01-01] MEDS ORDERED: SODIUM BICARBONATE 8.4% 1 MEQ/ML 50ML SYR IV ONE (11:15)
[2022-01-01] MEDS ORDERED: BUSPIRONE HCL 10MG TABLET NG PRN (11:15)
[2022-01-01 11:16] LABS: *BENZODIAZEPINES SCREEN URINE PRESUMTIVE POSITIVE (NEGATIVE); *COCAINE SCREEN URINE PRESUMTIVE POSITIVE (NEGATIVE); METHADONE URINE SCREEN NEGATIVE (NEGATIVE); OPIATES URINE SCREEN NEGATIVE (NEGATIVE); PHENCYCLIDINE URINE SCREEN NEGATIVE (NEGATIVE)
[2022-01-01 11:18] LABS: CANNABINOID URINE SCREEN PRESUMTIVE POSITIVE (NEGATIVE)
[2022-01-01 11:36] LABS: PLATELET ESTIMATE NORMAL
[2022-01-01] MEDS ORDERED: FENTANYL CITRATE 2,500 MCG in SODIUM CHLORIDE 0.9% 200 ML IV PRN (12:00)
[2022-01-01] MEDS ORDERED: MIDAZOLAM HCL 100 MG in DEXT 5% WATER 80 ML IV PRN (12:00)
[2022-01-01] MEDS ORDERED: PIPERACILLIN/TAZ 3.375G PREMIX 50 ML IV NR (12:00)
[2022-01-01] MEDS: MIDAZOLAM HCL 100 MG in SODIUM CHLORIDE 0.9% 100 ML IV PRN ×2 (12:11→20:15)
[2022-01-01] MEDS ORDERED: IOHEXOL-350 100 ML BOTTLE ONE (12:47)
[2022-01-01 12:54] LABS: AMYLASE 393 IU/L (25-115)
[2022-01-01 12:57] LABS: LDL CHOLESTEROL 73 mg/dL (5-100)
[2022-01-01 12:59] LABS: HDL CHOLESTEROL 52 mg/dL (40-59)
[2022-01-01] MEDS ORDERED: DOCUSATE SODIUM 100MG CAPSULE PO PRN (13:00)
[2022-01-01] MEDS ORDERED: SODIUM BICARBONATE 8.4% 1 MEQ/ML 50ML SYR IV NR (13:00)
[2022-01-01] MEDS ORDERED: IPRATROPIUM/ALBUTEROL 0.5-3(2.5)MG/3ML NEB HHN PRN (13:15)
[2022-01-01] MEDS: ACETAMINOPHEN 650MG SUPP PR PRN ×2 (13:20→20:52)
[2022-01-01 13:27] LABS: PHOSPHORUS 9.7 mg/dL (2.5-4.9)
[2022-01-01] MEDS: MEPERIDINE HCL/PF 25MG/ML CPJ IV PRN ×2 (14:16→20:59)
[2022-01-01] MEDS ORDERED: LEVETIRACETAM 500MG PREMIX 100 ML IV SCH (14:30)
[2022-01-01] MEDS: ENOXAPARIN 40MG/0.4ML SYR SUBCUT SCH (15:00)
[2022-01-01] MEDS: PIPERACILLIN/TAZOBACTAM 3.375 G in DEXTROSE 5% WATER 50 ML IV SCH ×2 (15:38→21:39)
[2022-01-01] MEDS: CHLORHEXIDINE GLUCONATE 4% EXTERNAL USE TOP SCH (15:42)
[2022-01-01] MEDS ORDERED: VECURONIUM BROMIDE 10 MG/VIAL IV SCH (16:00)
[2022-01-01] MEDS: PROPOFOL 10MG/ML 100ML 100 ML IV PRN ×3 (16:09→23:34)
[2022-01-01] MEDS: IPRATROPIUM/ALBUTEROL 0.5-3(2.5)MG/3ML NEB HHN SCH ×2 (17:16→20:23)
[2022-01-01] MEDS: ACETYLCYSTEINE 100MG/ML 10% VIAL 4ML INH SCH ×2 (17:16→20:23)
[2022-01-01 17:21] LABS: BG BASE EXCESS -6.1 mmol/L (-2.0-2.0); BG CARBOXYHEMOGLOBIN 0.1 % (0.5-1.5); BG DEOXYHEMOGLOBIN 1.3 % (0.0-5.0); BG HCO3 ACT 17.1 mmol/L (22.0-26.0); BG METHEMOGLOBIN 0.3 % (0.0-1.5); BG OXYGEN SATURATION 98.7 % (92.0-98.5); BG OXYHEMOGLOBIN 98.3 % (94.0-97.0); BG PCO2 28.6 mmHg (35.0-45.0); BG PH 7.394 (7.350-7.450); BG PO2 131.5 mmHg (75.0-100.0); BG SAMPLE SITE RIGHT RADIAL; BG TOTAL HEMOGLOBIN 16.4 g/dL (12.0-18.0); BG VENT MODE VENT - AC
[2022-01-01] MEDS ORDERED: VANCOMYCIN 1.25GM PMX (XELLIA) 250 ML IV SCH (18:00)
[2022-01-01 19:20] LABS: HEMATOCRIT. 46.6 % (42.0-52.0); HEMOGLOBIN. 15.4 g/dL (14.0-18.0); MEAN CORPUSCULAR HEMOGLOBIN 30.3 pg (28.0-32.0); MEAN PLATELET VOLUME 8.8 fl (7.4-10.4); PLATELET 223 x1000/uL (130-400); RED BLOOD CELL COUNT 5.07 mill/uL (4.7-6.1); RED CELL DISTRIBUTION WIDTH 13.9 % (11.6-14.6)
[2022-01-01 19:34] LABS: PHOSPHORUS 2.3 mg/dL (2.5-4.9)
[2022-01-01 19:59] LABS: PLATELET ESTIMATE NORMAL
[2022-01-01] MEDS: FENTANYL 2500MCG/250ML PMX 250 ML IV PRN (20:14)
[2022-01-01] MEDS: LEVETIRACETAM 500MG PREMIX 100 ML IV SCH (21:00)
[2022-01-01] MEDS: DEXT 5%/0.45% NACL 1000ML 1,000 ML IV SCH (21:10)
[2022-01-01] MEDS: NOREPINEPHRINE 8 MG in DEXT 5% WATER 242 ML IV PRN (21:38)
[2022-01-01] MEDS ORDERED: DEXTROSE 50% WATER 50ML SYRINGE IV PRN (22:15)
[2022-01-01 23:22] LABS: INR 1.1; PARTIAL THROMBOPLASTIN TIME 26.2 sec (23.4-31.0); PROTHROMBIN TIME 11.6 sec (9.6-11.0)
[2022-01-01 23:28] LABS: CREATINE KINASE MB FRACTION 34.4 ng/mL (0.5-3.6)
[2022-01-01] MEDS: INSULIN LISPRO 100 UNITS/ML SUBCUT SCH (23:35)
[2022-01-01] MEDS: BLOOD SUGAR DIAGNOSTIC STRIP TEST SCH (23:35)
[2022-01-02] VITALS (96 sets, daily range): BP systolic 71–131; BP diastolic 42–98
[2022-01-02] MEDS: IPRATROPIUM/ALBUTEROL 0.5-3(2.5)MG/3ML NEB HHN SCH ×6 (00:31→21:47)
[2022-01-02 01:07] LABS: HEMATOCRIT. 44.7 % (42.0-52.0); HEMOGLOBIN. 14.6 g/dL (14.0-18.0); MEAN CORPUSCULAR HEMOGLOBIN 30.3 pg (28.0-32.0); MEAN CORPUSCULAR VOLUME 92.9 fL (80.0-94.0); MEAN PLATELET VOLUME 8.6 fl (7.4-10.4); PLATELET 214 x1000/uL (130-400); RED BLOOD CELL COUNT 4.82 mill/uL (4.7-6.1); RED CELL DISTRIBUTION WIDTH 13.9 % (11.6-14.6)
[2022-01-02 01:17] LABS: CHLORIDE 108 mEq/L (98-107)
[2022-01-02 01:43] LABS: BG BASE EXCESS -2.9 mmol/L (-2.0-2.0); BG CARBOXYHEMOGLOBIN 0.3 % (0.5-1.5); BG DEOXYHEMOGLOBIN 0.8 % (0.0-5.0); BG FRACTION INSPIRED OXYGEN 40; BG HCO3 ACT 20.6 mmol/L (22.0-26.0); BG METHEMOGLOBIN 0.3 % (0.0-1.5); BG OXYGEN SATURATION 99.2 % (92.0-98.5); BG OXYHEMOGLOBIN 98.6 % (94.0-97.0); BG PCO2 32.7 mmHg (35.0-45.0); BG PH 7.417 (7.350-7.450); BG PO2 169.4 mmHg (75.0-100.0); BG TOTAL HEMOGLOBIN 15.7 g/dL (12.0-18.0); BG VENT MODE VENT - AC
[2022-01-02] MEDS ORDERED: POTASSIUM PHOS,M-BASIC-D-BASIC 30 MMOL in DEXT 5% WATER 500 ML IV SCH ×2 (03:00→16:00)
[2022-01-02] MEDS: FENTANYL 2500MCG/250ML PMX 250 ML IV PRN ×4 (03:17→23:50)
[2022-01-02] MEDS: PROPOFOL 10MG/ML 100ML 100 ML IV PRN ×6 (04:31→22:19)
[2022-01-02] MEDS: BLOOD SUGAR DIAGNOSTIC STRIP TEST SCH ×6 (04:54→23:44)
[2022-01-02] MEDS: INSULIN LISPRO 100 UNITS/ML SUBCUT SCH ×6 (04:54→23:44)
[2022-01-02 05:28] LABS: PLATELET ESTIMATE NORMAL
[2022-01-02] MEDS: PIPERACILLIN/TAZOBACTAM 3.375 G in DEXTROSE 5% WATER 50 ML IV SCH ×3 (05:37→22:23)
[2022-01-02] MEDS: DEXT 5%/0.45% NACL 1000ML 1,000 ML IV SCH ×2 (06:05→16:22)
[2022-01-02 06:14] LABS: HEMATOCRIT. 43.9 % (42.0-52.0); HEMOGLOBIN. 14.6 g/dL (14.0-18.0); MEAN CORPUSCULAR HEMOGLOBIN 30.5 pg (28.0-32.0); MEAN CORPUSCULAR VOLUME 91.5 fL (80.0-94.0); MEAN PLATELET VOLUME 9.3 fl (7.4-10.4); PLATELET 201 x1000/uL (130-400); RED BLOOD CELL COUNT 4.79 mill/uL (4.7-6.1); RED CELL DISTRIBUTION WIDTH 14.1 % (11.6-14.6)
[2022-01-02 06:18] LABS: CHLORIDE 111 mEq/L (98-107)
[2022-01-02] MEDS: MEPERIDINE HCL/PF 25MG/ML CPJ IV PRN ×2 (06:24→13:56)
[2022-01-02] MEDS: ACETAMINOPHEN 650MG SUPP PR PRN ×3 (06:28→23:12)
[2022-01-02 06:29] LABS: LDL CHOLESTEROL 55 mg/dL (5-100); PHOSPHORUS 1.2 mg/dL (2.5-4.9)
[2022-01-02 06:31] LABS: HDL CHOLESTEROL 53 mg/dL (40-59)
[2022-01-02 06:35] LABS: CREATINE KINASE MB FRACTION 39.9 ng/mL (0.5-3.6); T4 FREE 1.18 ng/dL (0.76-1.46)
[2022-01-02] MEDS: MIDAZOLAM HCL 100 MG in SODIUM CHLORIDE 0.9% 100 ML IV PRN ×2 (06:59→16:23)
[2022-01-02 07:32] LABS: PLATELET ESTIMATE NORMAL
[2022-01-02] MEDS: ACETYLCYSTEINE 100MG/ML 10% VIAL 4ML INH SCH ×2 (08:25→16:19)
[2022-01-02] MEDS: PANTOPRAZOLE SODIUM 40 MG/VIAL IV SCH (08:35)
[2022-01-02] MEDS: CHLORHEXIDINE GLUCONATE 4% EXTERNAL USE TOP SCH (08:41)
[2022-01-02] MEDS: LEVETIRACETAM 500MG PREMIX 100 ML IV SCH ×2 (08:42→20:11)
[2022-01-02] MEDS: VANCOMYCIN 1.25GM PMX (XELLIA) 250 ML IV SCH ×2 (09:49→20:49)
[2022-01-02] MEDS: KCL 20MEQ/100ML PREMIX 100 ML IV SCH ×5 (09:50→21:04)
[2022-01-02 09:55] LABS: BG BASE EXCESS -1.6 mmol/L (-2.0-2.0); BG CARBOXYHEMOGLOBIN 0.3 % (0.5-1.5); BG DEOXYHEMOGLOBIN 1.4 % (0.0-5.0); BG FRACTION INSPIRED OXYGEN 40; BG HCO3 ACT 20.7 mmol/L (22.0-26.0); BG OXYGEN SATURATION 98.6 % (92.0-98.5); BG OXYHEMOGLOBIN 98.3 % (94.0-97.0); BG PCO2 29.2 mmHg (35.0-45.0); BG PH 7.468 (7.350-7.450); BG PO2 111.7 mmHg (75.0-100.0); BG SAMPLE SITE RIGHT RADIAL; BG TOTAL HEMOGLOBIN 15.6 g/dL (12.0-18.0); BG VENT MODE VENT - AC
[2022-01-02] MEDS ORDERED: POTASSIUM PHOS,M-BASIC-D-BASIC 20 MMOL in DEXT 5% WATER 243.3333 ML IV SCH (10:00)
[2022-01-02] MEDS: NOREPINEPHRINE 8 MG in DEXT 5% WATER 242 ML IV PRN (11:11)
[2022-01-02 14:11] LABS: BASOPHILS % 0.3 % (0.0-2.0); EOSINOPHILS % 0.3 % (0.0-5.0); HEMATOCRIT. 44.7 % (42.0-52.0); HEMOGLOBIN. 14.6 g/dL (14.0-18.0); LYMPHOCYTES % 8.8 % (20.0-50.0); MEAN CORPUSCULAR HEMOGLOBIN 29.8 pg (28.0-32.0); MEAN CORPUSCULAR VOLUME 91.2 fL (80.0-94.0); MEAN PLATELET VOLUME 8.8 fl (7.4-10.4); MONOCYTES % 5.9 % (2.0-8.0); NEUTROPHILS % 84.7 % (40.0-76.0); PLATELET 189 x1000/uL (130-400); RED CELL DISTRIBUTION WIDTH 13.6 % (11.6-14.6)
[2022-01-02 14:18] LABS: CHLORIDE 112 mEq/L (98-107)
[2022-01-02 14:26] LABS: PHOSPHORUS 1.7 mg/dL (2.5-4.9)
[2022-01-02] MEDS: ENOXAPARIN 40MG/0.4ML SYR SUBCUT SCH (15:00)
[2022-01-02 17:53] LABS: BG BASE EXCESS -1.5 mmol/L (-2.0-2.0); BG CARBOXYHEMOGLOBIN 0.3 % (0.5-1.5); BG DEOXYHEMOGLOBIN 1.5 % (0.0-5.0); BG FRACTION INSPIRED OXYGEN 40; BG HCO3 ACT 22.7 mmol/L (22.0-26.0); BG METHEMOGLOBIN 0.3 % (0.0-1.5); BG OXYGEN SATURATION 98.5 % (92.0-98.5); BG OXYHEMOGLOBIN 97.9 % (94.0-97.0); BG PCO2 36.6 mmHg (35.0-45.0); BG PO2 133.4 mmHg (75.0-100.0); BG SAMPLE SITE RIGHT RADIAL; BG TOTAL HEMOGLOBIN 14.3 g/dL (12.0-18.0); BG VENT MODE VENT - AC
[2022-01-02 18:49] LABS: BASOPHILS % 0.2 % (0.0-2.0); EOSINOPHILS % 0.6 % (0.0-5.0); HEMATOCRIT. 42.6 % (42.0-52.0); HEMOGLOBIN. 14.5 g/dL (14.0-18.0); LYMPHOCYTES % 9.1 % (20.0-50.0); MEAN CORPUSCULAR VOLUME 91.1 fL (80.0-94.0); MEAN PLATELET VOLUME 8.5 fl (7.4-10.4); MONOCYTES % 4.9 % (2.0-8.0); NEUTROPHILS % 85.2 % (40.0-76.0); PLATELET 158 x1000/uL (130-400); RED BLOOD CELL COUNT 4.67 mill/uL (4.7-6.1); RED CELL DISTRIBUTION WIDTH 13.7 % (11.6-14.6)
[2022-01-02 18:55] LABS: CHLORIDE 114 mEq/L (98-107)
[2022-01-02 18:58] LABS: INR 1.3
[2022-01-03] VITALS (94 sets, daily range): BP systolic 77–129; BP diastolic 43–94
[2022-01-03 00:44] LABS: CHLORIDE 115 mEq/L (98-107)
[2022-01-03 00:45] LABS: BASOPHILS % 0.3 % (0.0-2.0); EOSINOPHILS % 0.6 % (0.0-5.0); HEMATOCRIT. 40.9 % (42.0-52.0); HEMOGLOBIN. 13.5 g/dL (14.0-18.0); LYMPHOCYTES % 10.7 % (20.0-50.0); MEAN CORPUSCULAR HEMOGLOBIN 30.2 pg (28.0-32.0); MEAN CORPUSCULAR VOLUME 91.5 fL (80.0-94.0); MEAN PLATELET VOLUME 8.6 fl (7.4-10.4); MONOCYTES % 2.6 % (2.0-8.0); NEUTROPHILS % 85.8 % (40.0-76.0); PLATELET 175 x1000/uL (130-400); RED BLOOD CELL COUNT 4.47 mill/uL (4.7-6.1)
[2022-01-03] MEDS: NOREPINEPHRINE 8 MG in DEXT 5% WATER 242 ML IV PRN ×3 (01:06→18:15)
[2022-01-03] MEDS: IPRATROPIUM/ALBUTEROL 0.5-3(2.5)MG/3ML NEB HHN SCH ×6 (01:44→20:28)
[2022-01-03] MEDS: ACETYLCYSTEINE 100MG/ML 10% VIAL 4ML INH SCH ×3 (01:44→16:12)
[2022-01-03] MEDS: DEXT 5%/0.45% NACL 1000ML 1,000 ML IV SCH ×3 (02:35→21:52)
[2022-01-03] MEDS: PROPOFOL 10MG/ML 100ML 100 ML IV PRN ×5 (02:35→20:09)
[2022-01-03 02:48] LABS: INR 1.1; PROTHROMBIN TIME 11.8 sec (9.6-11.0)
[2022-01-03] MEDS: MIDAZOLAM HCL 100 MG in SODIUM CHLORIDE 0.9% 100 ML IV PRN (03:02)
[2022-01-03] MEDS: BLOOD SUGAR DIAGNOSTIC STRIP TEST SCH ×6 (04:00→23:36)
[2022-01-03] MEDS: INSULIN LISPRO 100 UNITS/ML SUBCUT SCH ×6 (04:00→23:36)
[2022-01-03] MEDS: PIPERACILLIN/TAZOBACTAM 3.375 G in DEXTROSE 5% WATER 50 ML IV SCH ×3 (05:34→21:52)
[2022-01-03 05:43] LABS: BASOPHILS % 0.2 % (0.0-2.0); EOSINOPHILS % 0.8 % (0.0-5.0); HEMATOCRIT. 44.5 % (42.0-52.0); HEMOGLOBIN. 14.5 g/dL (14.0-18.0); LYMPHOCYTES % 11.1 % (20.0-50.0); MEAN CORPUSCULAR HEMOGLOBIN 29.9 pg (28.0-32.0); MEAN CORPUSCULAR VOLUME 91.9 fL (80.0-94.0); MEAN PLATELET VOLUME 8.9 fl (7.4-10.4); MONOCYTES % 6.2 % (2.0-8.0); NEUTROPHILS % 81.7 % (40.0-76.0); PLATELET 172 x1000/uL (130-400); RED BLOOD CELL COUNT 4.84 mill/uL (4.7-6.1); RED CELL DISTRIBUTION WIDTH 14.2 % (11.6-14.6)
[2022-01-03 05:54] LABS: INR 1.1; PARTIAL THROMBOPLASTIN TIME 30.8 sec (23.4-31.0); PROTHROMBIN TIME 11.9 sec (9.6-11.0)
[2022-01-03 06:14] LABS: CHLORIDE 114 mEq/L (98-107)
[2022-01-03 06:23] LABS: PHOSPHORUS 2.6 mg/dL (2.5-4.9)
[2022-01-03] MEDS: FENTANYL 2500MCG/250ML PMX 250 ML IV PRN ×3 (07:38→20:50)
[2022-01-03 08:32] LABS: BG BASE EXCESS -2.7 mmol/L (-2.0-2.0); BG CARBOXYHEMOGLOBIN 0.3 % (0.5-1.5); BG DEOXYHEMOGLOBIN 1.3 % (0.0-5.0); BG HCO3 ACT 21.7 mmol/L (22.0-26.0); BG METHEMOGLOBIN 0.3 % (0.0-1.5); BG OXYGEN SATURATION 98.7 % (92.0-98.5); BG OXYHEMOGLOBIN 98.1 % (94.0-97.0); BG PCO2 36.5 mmHg (35.0-45.0); BG PH 7.392 (7.350-7.450); BG PO2 138.6 mmHg (75.0-100.0); BG SAMPLE SITE RIGHT RADIAL; BG TOTAL HEMOGLOBIN 14.3 g/dL (12.0-18.0); BG VENT MODE VENT - AC
[2022-01-03] MEDS: PANTOPRAZOLE SODIUM 40 MG/VIAL IV SCH (08:52)
[2022-01-03] MEDS: LEVETIRACETAM 500MG PREMIX 100 ML IV SCH ×2 (08:52→20:44)
[2022-01-03] MEDS: CHLORHEXIDINE GLUCONATE 4% EXTERNAL USE TOP SCH (08:53)
[2022-01-03 11:38] LABS: BASOPHILS % 0.2 % (0.0-2.0); EOSINOPHILS % 1.7 % (0.0-5.0); HEMATOCRIT. 38.7 % (42.0-52.0); HEMOGLOBIN. 13.4 g/dL (14.0-18.0); LYMPHOCYTES % 9.1 % (20.0-50.0); MEAN CORPUSCULAR HEMOGLOBIN 31.4 pg (28.0-32.0); MEAN CORPUSCULAR VOLUME 90.5 fL (80.0-94.0); MEAN PLATELET VOLUME 8.9 fl (7.4-10.4); MONOCYTES % 4.2 % (2.0-8.0); NEUTROPHILS % 84.8 % (40.0-76.0); PLATELET 148 x1000/uL (130-400); RED BLOOD CELL COUNT 4.27 mill/uL (4.7-6.1)
[2022-01-03 11:42] LABS: INR 1.1; PARTIAL THROMBOPLASTIN TIME 33.4 sec (23.4-31.0); PROTHROMBIN TIME 11.5 sec (9.6-11.0)
[2022-01-03 12:00] LABS: CHLORIDE 114 mEq/L (98-107)
[2022-01-03] MEDS: ENOXAPARIN 40MG/0.4ML SYR SUBCUT SCH (15:00)
[2022-01-03 17:39] LABS: BASOPHILS % 0.3 % (0.0-2.0); EOSINOPHILS % 2.4 % (0.0-5.0); HEMATOCRIT. 42.6 % (42.0-52.0); HEMOGLOBIN. 14.3 g/dL (14.0-18.0); LYMPHOCYTES % 12.1 % (20.0-50.0); MEAN CORPUSCULAR HEMOGLOBIN 30.9 pg (28.0-32.0); MEAN CORPUSCULAR VOLUME 91.6 fL (80.0-94.0); MEAN PLATELET VOLUME 8.7 fl (7.4-10.4); NEUTROPHILS % 79.2 % (40.0-76.0); PLATELET 149 x1000/uL (130-400); RED BLOOD CELL COUNT 4.65 mill/uL (4.7-6.1); RED CELL DISTRIBUTION WIDTH 14.3 % (11.6-14.6)
[2022-01-03 17:42] LABS: CHLORIDE 114 mEq/L (98-107)
[2022-01-03 17:48] LABS: INR 1.1; PARTIAL THROMBOPLASTIN TIME 33.6 sec (23.4-31.0); PROTHROMBIN TIME 11.4 sec (9.6-11.0)
[2022-01-03 18:07] LABS: PHOSPHORUS 2.5 mg/dL (2.5-4.9)
[2022-01-03] MEDS: VANCOMYCIN 750MG PREMIX 150 ML IV SCH (18:45)
[2022-01-03] MEDS ORDERED: MAGNESIUM 2 G PREMIX 50 ML IV NR (21:00)
[2022-01-03] MEDS: ACETAMINOPHEN 650MG SUPP PR PRN (21:48)
[2022-01-03 23:24] LABS: BASOPHILS % 0.4 % (0.0-2.0); EOSINOPHILS % 3.6 % (0.0-5.0); HEMATOCRIT. 40.1 % (42.0-52.0); HEMOGLOBIN. 13.3 g/dL (14.0-18.0); LYMPHOCYTES % 10.8 % (20.0-50.0); MEAN CORPUSCULAR HEMOGLOBIN 29.9 pg (28.0-32.0); MEAN CORPUSCULAR VOLUME 90.4 fL (80.0-94.0); MEAN PLATELET VOLUME 8.8 fl (7.4-10.4); MONOCYTES % 3.7 % (2.0-8.0); NEUTROPHILS % 81.5 % (40.0-76.0); PLATELET 143 x1000/uL (130-400); RED BLOOD CELL COUNT 4.43 mill/uL (4.7-6.1); RED CELL DISTRIBUTION WIDTH 14.3 % (11.6-14.6)
[2022-01-03 23:28] LABS: CHLORIDE 117 mEq/L (98-107)
[2022-01-03 23:33] LABS: PARTIAL THROMBOPLASTIN TIME 36.8 sec (23.4-31.0); PROTHROMBIN TIME 10.9 sec (9.6-11.0)
[2022-01-04] VITALS (96 sets, daily range): BP systolic 81–207; BP diastolic 42–119
[2022-01-04] MEDS: IPRATROPIUM/ALBUTEROL 0.5-3(2.5)MG/3ML NEB HHN SCH ×6 (00:15→20:00)
[2022-01-04] MEDS: ACETYLCYSTEINE 100MG/ML 10% VIAL 4ML INH SCH ×3 (00:16→16:14)
[2022-01-04] MEDS: PROPOFOL 10MG/ML 100ML 100 ML IV PRN ×3 (00:43→17:25)
[2022-01-04] MEDS: INSULIN LISPRO 100 UNITS/ML SUBCUT SCH ×5 (04:00→20:00)
[2022-01-04] MEDS: BLOOD SUGAR DIAGNOSTIC STRIP TEST SCH ×5 (04:00→20:36)
[2022-01-04] MEDS: FENTANYL 2500MCG/250ML PMX 250 ML IV PRN ×2 (04:05→12:03)
[2022-01-04] MEDS: ACETAMINOPHEN 650MG SUPP PR PRN ×3 (04:24→19:33)
[2022-01-04] MEDS: PIPERACILLIN/TAZOBACTAM 3.375 G in DEXTROSE 5% WATER 50 ML IV SCH ×3 (05:57→21:51)
[2022-01-04] MEDS: VANCOMYCIN 750MG PREMIX 150 ML IV SCH ×2 (05:57→17:23)
[2022-01-04] MEDS: MEPERIDINE HCL/PF 25MG/ML CPJ IV PRN (05:58)
[2022-01-04 05:59] LABS: BASOPHILS % 0.4 % (0.0-2.0); HEMATOCRIT. 41.1 % (42.0-52.0); HEMOGLOBIN. 13.7 g/dL (14.0-18.0); LYMPHOCYTES % 9.4 % (20.0-50.0); MEAN CORPUSCULAR HEMOGLOBIN 30.5 pg (28.0-32.0); MEAN CORPUSCULAR VOLUME 91.5 fL (80.0-94.0); MEAN PLATELET VOLUME 9.1 fl (7.4-10.4); NEUTROPHILS % 82.2 % (40.0-76.0); PLATELET 154 x1000/uL (130-400); RED BLOOD CELL COUNT 4.49 mill/uL (4.7-6.1); RED CELL DISTRIBUTION WIDTH 14.5 % (11.6-14.6)
[2022-01-04 06:11] LABS: CHLORIDE 116 mEq/L (98-107)
[2022-01-04] MEDS: NOREPINEPHRINE 8 MG in DEXT 5% WATER 242 ML IV PRN (06:14)
[2022-01-04 06:17] LABS: PHOSPHORUS 2.1 mg/dL (2.5-4.9)
[2022-01-04 09:01] LABS: BG BASE EXCESS -3.9 mmol/L (-2.0-2.0); BG CARBOXYHEMOGLOBIN 0.3 % (0.5-1.5); BG DEOXYHEMOGLOBIN 3.1 % (0.0-5.0); BG FRACTION INSPIRED OXYGEN 40; BG HCO3 ACT 22.1 mmol/L (22.0-26.0); BG METHEMOGLOBIN 0.4 % (0.0-1.5); BG OXYGEN SATURATION 96.9 % (92.0-98.5); BG OXYHEMOGLOBIN 96.2 % (94.0-97.0); BG PCO2 43.4 mmHg (35.0-45.0); BG PH 7.324 (7.350-7.450); BG PO2 96.6 mmHg (75.0-100.0); BG SAMPLE SITE RIGHT RADIAL; BG VENT MODE VENT - AC
[2022-01-04] MEDS: CHLORHEXIDINE GLUCONATE 4% EXTERNAL USE TOP SCH (09:29)
[2022-01-04] MEDS: DEXT 5%/0.45% NACL 1000ML 1,000 ML IV SCH ×2 (09:29→18:28)
[2022-01-04] MEDS: LEVETIRACETAM 500MG PREMIX 100 ML IV SCH ×2 (09:29→21:01)
[2022-01-04] MEDS: MIDODRINE HCL 5MG TABLET PO SCH ×2 (13:42→17:23)
[2022-01-04] MEDS: CHLORDIAZEPOXIDE 25MG CAPSULE PO SCH ×2 (14:59→21:35)
[2022-01-04] MEDS: ENOXAPARIN 40MG/0.4ML SYR SUBCUT SCH (14:59)
[2022-01-04] MEDS: SUCRALFATE 1 G/10 ML UDC NG SCH (18:27)
[2022-01-04] MEDS: THIAMINE HCL 100MG TABLET PO SCH (18:27)
[2022-01-04] MEDS: MULTIVITAMINS,THER W-MINERALS TABLET PO SCH (18:27)
[2022-01-04] MEDS ORDERED: FOLIC ACID 1 MG in SODIUM CHLORIDE 0.9% 500 ML IV NR (20:00)
[2022-01-04] MEDS: DEXTROSE 50% WATER 50ML SYRINGE IV PRN ×3 (20:41→23:32)
[2022-01-04] MEDS: PANTOPRAZOLE SODIUM 40 MG/VIAL IV SCH (20:53)
[2022-01-04] MEDS: RIFAXIMIN 550 MG TABLET PO SCH (20:53)
[2022-01-05] VITALS (95 sets, daily range): BP systolic 77–161; BP diastolic 44–107
[2022-01-05] MEDS: BLOOD SUGAR DIAGNOSTIC STRIP TEST SCH ×13 (00:13→16:00)
[2022-01-05] MEDS: SUCRALFATE 1 G/10 ML UDC NG SCH ×4 (00:14→18:25)
[2022-01-05] MEDS: IPRATROPIUM/ALBUTEROL 0.5-3(2.5)MG/3ML NEB HHN SCH ×6 (00:28→20:55)
[2022-01-05] MEDS: ACETYLCYSTEINE 100MG/ML 10% VIAL 4ML INH SCH ×4 (00:28→16:17)
[2022-01-05] MEDS: PROPOFOL 10MG/ML 100ML 100 ML IV PRN (02:26)
[2022-01-05] MEDS: FENTANYL 2500MCG/250ML PMX 250 ML IV PRN (02:59)
[2022-01-05 03:59] LABS: INR 1.1; PROTHROMBIN TIME 11.4 sec (9.6-11.0)
[2022-01-05 04:00] LABS: CHLORIDE 111 mEq/L (98-107)
[2022-01-05] MEDS: INSULIN LISPRO 100 UNITS/ML SUBCUT SCH ×5 (04:00→16:00)
[2022-01-05 04:06] LABS: PHOSPHORUS 2.2 mg/dL (2.5-4.9)
[2022-01-05 04:07] LABS: TOTAL IRON BINDING CAPACITY 207 ug/dL (250-450)
[2022-01-05 04:16] LABS: FERRITIN 254 ng/mL (22-322)
[2022-01-05 04:27] LABS: HEPATITIS B SURFACE ANTIGEN NEGATIVE
[2022-01-05 04:43] LABS: VITAMIN B12 SERUM >2000 pg/mL pg/mL (211-911)
[2022-01-05] MEDS: CHLORDIAZEPOXIDE 25MG CAPSULE PO SCH ×3 (06:08→21:47)
[2022-01-05] MEDS: VANCOMYCIN 750MG PREMIX 150 ML IV SCH (06:09)
[2022-01-05] MEDS: PIPERACILLIN/TAZOBACTAM 3.375 G in DEXTROSE 5% WATER 50 ML IV SCH ×3 (06:42→21:48)
[2022-01-05 08:30] LABS: BG CARBOXYHEMOGLOBIN 0.3 % (0.5-1.5); BG DEOXYHEMOGLOBIN 1.8 % (0.0-5.0); BG HCO3 ACT 21.5 mmol/L (22.0-26.0); BG METHEMOGLOBIN 0.3 % (0.0-1.5); BG OXYGEN SATURATION 98.2 % (92.0-98.5); BG OXYHEMOGLOBIN 97.6 % (94.0-97.0); BG PCO2 40.8 mmHg (35.0-45.0); BG PH 7.339 (7.350-7.450); BG PO2 104.2 mmHg (75.0-100.0); BG SAMPLE SITE RIGHT RADIAL; BG TOTAL HEMOGLOBIN 13.7 g/dL (12.0-18.0); BG VENT MODE VENT - AC
[2022-01-05] MEDS: LEVETIRACETAM 500MG PREMIX 100 ML IV SCH ×2 (08:41→20:28)
[2022-01-05] MEDS: PANTOPRAZOLE SODIUM 40 MG/VIAL IV SCH ×2 (08:41→21:40)
[2022-01-05] MEDS: RIFAXIMIN 550 MG TABLET PO SCH ×2 (08:42→21:40)
[2022-01-05] MEDS: FOLIC ACID 1MG TABLET PO SCH (08:42)
[2022-01-05] MEDS: MULTIVITAMINS,THER W-MINERALS TABLET PO SCH (08:42)
[2022-01-05] MEDS: THIAMINE HCL 100MG TABLET PO SCH (08:42)
[2022-01-05] MEDS: DEXT 10% WATER 1,000 ML IV SCH ×2 (08:43→15:04)
[2022-01-05] MEDS ORDERED: THIAMINE HCL 100MG TABLET PO SCH (09:00)
[2022-01-05] MEDS ORDERED: MULTIVITAMINS,THER W-MINERALS TABLET PO SCH (09:00)
[2022-01-05] MEDS: MIDODRINE HCL 5MG TABLET PO SCH ×4 (09:00→18:26)
[2022-01-05] MEDS: CHLORHEXIDINE GLUCONATE 4% EXTERNAL USE TOP SCH (09:04)
[2022-01-05] MEDS ORDERED: DEXTROSE 50% WATER 50ML SYRINGE IV PRN ×2 (09:45→19:00)
[2022-01-05] MEDS: ACETAMINOPHEN 650MG/20.3ML UDC PO PRN ×2 (11:04→20:47)
[2022-01-05] MEDS: LORAZEPAM 2MG/ML CPJ IV PRN ×3 (14:40→17:15)
[2022-01-05] MEDS: ENOXAPARIN 40MG/0.4ML SYR SUBCUT SCH (15:03)
[2022-01-05 15:13] LABS: HEMATOCRIT. 43.3 % (42.0-52.0); HEMOGLOBIN. 14.2 g/dL (14.0-18.0); MEAN CORPUSCULAR HEMOGLOBIN 30.2 pg (28.0-32.0); MEAN CORPUSCULAR VOLUME 92.4 fL (80.0-94.0); PLATELET 148 x1000/uL (130-400); RED BLOOD CELL COUNT 4.68 mill/uL (4.7-6.1); RED CELL DISTRIBUTION WIDTH 14.5 % (11.6-14.6)
[2022-01-05] MEDS: VANCOMYCIN 1GM PMX (XELLIA) 200 ML IV SCH (18:26)
[2022-01-05] MEDS ORDERED: MIDAZOLAM HCL 100 MG in SODIUM CHLORIDE 0.9% 80 ML IV PRN (18:30)
[2022-01-05] MEDS ORDERED: SODIUM CHLORIDE 0.9% 1000ML BAG (SEPSIS BOLUS) IV NR (19:00)
[2022-01-05] MEDS: SODIUM CHLORIDE 0.9% 1,000 ML IV SCH (19:38)
[2022-01-05 20:55] LABS: PLATELET ESTIMATE NORMAL
[2022-01-05] MEDS ORDERED: PHENYLEPHRINE 100 MG in DEXT 5% WATER 240 ML IV PRN (22:30)
[2022-01-06] VITALS (96 sets, daily range): BP systolic 91–171; BP diastolic 55–116
[2022-01-06] MEDS: BLOOD SUGAR DIAGNOSTIC STRIP TEST SCH ×3 (00:03→17:52)
[2022-01-06] MEDS: SUCRALFATE 1 G/10 ML UDC NG SCH ×4 (00:05→17:24)
[2022-01-06] MEDS: IPRATROPIUM/ALBUTEROL 0.5-3(2.5)MG/3ML NEB HHN SCH ×6 (00:30→20:00)
[2022-01-06] MEDS: SODIUM CHLORIDE 0.9% 1,000 ML IV SCH (04:30)
[2022-01-06] MEDS: VANCOMYCIN 1GM PMX (XELLIA) 200 ML IV SCH ×2 (05:48→17:24)
[2022-01-06 05:59] LABS: CHLORIDE 109 mEq/L (98-107)
[2022-01-06] MEDS: CHLORDIAZEPOXIDE 25MG CAPSULE PO SCH ×3 (06:10→21:34)
[2022-01-06] MEDS: ACETYLCYSTEINE 100MG/ML 10% VIAL 4ML INH SCH (08:10)
[2022-01-06] MEDS: LEVETIRACETAM 500MG PREMIX 100 ML IV SCH ×2 (08:31→20:53)
[2022-01-06] MEDS: RIFAXIMIN 550 MG TABLET PO SCH ×2 (08:31→20:54)
[2022-01-06] MEDS: THIAMINE HCL 100MG TABLET PO SCH (08:31)
[2022-01-06] MEDS: MIDODRINE HCL 5MG TABLET PO SCH ×3 (08:31→17:00)
[2022-01-06] MEDS: MULTIVITAMINS,THER W-MINERALS TABLET PO SCH (08:31)
[2022-01-06] MEDS: FOLIC ACID 1MG TABLET PO SCH (08:32)
[2022-01-06] MEDS: PANTOPRAZOLE SODIUM 40 MG/VIAL IV SCH ×2 (08:33→20:53)
[2022-01-06] MEDS: CHLORHEXIDINE GLUCONATE 4% EXTERNAL USE TOP SCH (08:33)
[2022-01-06] MEDS: PIPERACILLIN/TAZOBACTAM 3.375 G in DEXTROSE 5% WATER 50 ML IV SCH (08:43)
[2022-01-06 09:00] LABS: BG BASE EXCESS -6.8 mmol/L (-2.0-2.0); BG CARBOXYHEMOGLOBIN 0.3 % (0.5-1.5); BG METHEMOGLOBIN 0.3 % (0.0-1.5); BG OXYHEMOGLOBIN 98.4 % (94.0-97.0); BG PH 7.305 (7.350-7.450); BG PO2 141.3 mmHg (75.0-100.0); BG SAMPLE SITE RIGHT RADIAL; BG VENT MODE VENT - AC
[2022-01-06] MEDS: ACETAMINOPHEN 650MG/20.3ML UDC PO PRN ×2 (09:16→15:43)
[2022-01-06] MEDS: ONDANSETRON HCL 4MG/2ML INJ IV PRN ×2 (10:07→17:23)
[2022-01-06 10:08] LABS: BG BASE EXCESS -5.9 mmol/L (-2.0-2.0); BG CARBOXYHEMOGLOBIN 0.1 % (0.5-1.5); BG DEOXYHEMOGLOBIN 1.9 % (0.0-5.0); BG HCO3 ACT 19.3 mmol/L (22.0-26.0); BG METHEMOGLOBIN 0.6 % (0.0-1.5); BG OXYGEN SATURATION 98.1 % (92.0-98.5); BG OXYHEMOGLOBIN 97.4 % (94.0-97.0); BG PCO2 37.1 mmHg (35.0-45.0); BG PH 7.333 (7.350-7.450); BG PO2 103.7 mmHg (75.0-100.0); BG SAMPLE SITE RIGHT RADIAL; BG TOTAL HEMOGLOBIN 14.8 g/dL (12.0-18.0); BG VENT MODE VENT - CPAP
[2022-01-06] MEDS: INSULIN LISPRO 100 UNITS/ML SUBCUT SCH ×3 (11:18→17:52)
[2022-01-06] MEDS: ENOXAPARIN 40MG/0.4ML SYR SUBCUT SCH (15:46)
[2022-01-06] MEDS: IRON SUCROSE COMPLEX 100 MG/5 ML ML IV SCH (17:24)
[2022-01-06] MEDS: LORAZEPAM 2MG/ML CPJ IV PRN (18:31)
[2022-01-07] VITALS (73 sets, daily range): BP systolic 85–190; BP diastolic 14–134
[2022-01-07] MEDS: BLOOD SUGAR DIAGNOSTIC STRIP TEST SCH ×4 (00:03→16:42)
[2022-01-07] MEDS: SUCRALFATE 1 G/10 ML UDC NG SCH ×4 (00:04→16:54)
[2022-01-07] MEDS: LORAZEPAM 2MG/ML CPJ IV PRN ×2 (00:34→13:27)
[2022-01-07] MEDS: IPRATROPIUM/ALBUTEROL 0.5-3(2.5)MG/3ML NEB HHN SCH ×6 (00:41→20:00)
[2022-01-07] MEDS: CHLORDIAZEPOXIDE 25MG CAPSULE PO SCH ×4 (05:36→21:04)
[2022-01-07] MEDS: INSULIN LISPRO 100 UNITS/ML SUBCUT SCH ×4 (07:00→16:41)
[2022-01-07] MEDS: SODIUM CHLORIDE 0.9% 1,000 ML IV SCH (08:30)
[2022-01-07] MEDS: LEVETIRACETAM 500MG PREMIX 100 ML IV SCH ×2 (08:31→23:10)
[2022-01-07] MEDS: FOLIC ACID 1MG TABLET PO SCH (08:31)
[2022-01-07] MEDS: MIDODRINE HCL 5MG TABLET PO SCH ×3 (08:31→16:10)
[2022-01-07] MEDS: PANTOPRAZOLE SODIUM 40 MG/VIAL IV SCH ×2 (08:31→21:04)
[2022-01-07] MEDS: RIFAXIMIN 550 MG TABLET PO SCH ×2 (08:31→21:04)
[2022-01-07] MEDS: MULTIVITAMINS,THER W-MINERALS TABLET PO SCH (08:31)
[2022-01-07] MEDS: THIAMINE HCL 100MG TABLET PO SCH (08:31)
[2022-01-07] MEDS: CHLORHEXIDINE GLUCONATE 4% EXTERNAL USE TOP SCH (08:32)
[2022-01-07] MEDS: ENOXAPARIN 40MG/0.4ML SYR SUBCUT SCH (14:04)
[2022-01-07] MEDS ORDERED: LORAZEPAM 2MG/ML CPJ IV NR (15:30)
[2022-01-07] MEDS: IRON SUCROSE COMPLEX 100 MG/5 ML ML IV SCH (16:55)
[2022-01-07] MEDS ORDERED: FOLIC ACID 1 MG, THIAMINE HCL 100 MG, MVI, ADULT NO.1 10 ML in DEXTROSE 5% WATER 1,000 ML IV ONE ×4 (17:00)
[2022-01-08] VITALS (13 sets, daily range): BP systolic 116–135; BP diastolic 56–95
[2022-01-08] MEDS: LORAZEPAM 2MG/ML CPJ IV PRN ×3 (00:34→17:45)
[2022-01-08] MEDS: SUCRALFATE 1 G/10 ML UDC NG SCH ×4 (00:40→17:45)
[2022-01-08] MEDS: BLOOD SUGAR DIAGNOSTIC STRIP TEST SCH ×5 (00:51→21:00)
[2022-01-08] MEDS ORDERED: ZOLPIDEM TARTRATE 5MG TABLET PO PRN (01:30)
[2022-01-08] MEDS: INSULIN LISPRO 100 UNITS/ML SUBCUT SCH ×5 (06:00→21:00)
[2022-01-08 06:44] LABS: HEMATOCRIT. 38.5 % (42.0-52.0); HEMOGLOBIN. 13.4 g/dL (14.0-18.0); MEAN CORPUSCULAR HEMOGLOBIN 30.7 pg (28.0-32.0); MEAN CORPUSCULAR VOLUME 88.1 fL (80.0-94.0); MEAN PLATELET VOLUME 8.5 fl (7.4-10.4); PLATELET 187 x1000/uL (130-400); RED BLOOD CELL COUNT 4.38 mill/uL (4.7-6.1); RED CELL DISTRIBUTION WIDTH 13.3 % (11.6-14.6)
[2022-01-08 07:05] LABS: INR 1.1; PROTHROMBIN TIME 11.3 sec (9.6-11.0)
[2022-01-08 07:19] LABS: CHLORIDE 104 mEq/L (98-107)
[2022-01-08] MEDS ORDERED: POTASSIUM CHLORIDE 20MEQ TABLET SR PO SCH (08:00)
[2022-01-08] MEDS: IPRATROPIUM/ALBUTEROL 0.5-3(2.5)MG/3ML NEB HHN SCH ×5 (08:46→21:23)
[2022-01-08] MEDS: LEVETIRACETAM 500MG PREMIX 100 ML IV SCH ×2 (09:46→22:06)
[2022-01-08] MEDS: PANTOPRAZOLE SODIUM 40 MG/VIAL IV SCH ×2 (09:47→22:06)
[2022-01-08] MEDS: THIAMINE HCL 100MG TABLET PO SCH (09:47)
[2022-01-08] MEDS: RIFAXIMIN 550 MG TABLET PO SCH ×2 (09:47→22:05)
[2022-01-08] MEDS: MULTIVITAMINS,THER W-MINERALS TABLET PO SCH (09:47)
[2022-01-08] MEDS: FOLIC ACID 1MG TABLET PO SCH (09:47)
[2022-01-08] MEDS: CHLORDIAZEPOXIDE 25MG CAPSULE PO SCH ×4 (09:56→22:06)
[2022-01-08] MEDS: MIDODRINE HCL 5MG TABLET PO SCH ×3 (10:42→17:00)
[2022-01-08] MEDS: ENOXAPARIN 40MG/0.4ML SYR SUBCUT SCH (13:55)
[2022-01-08 21:32] LABS: PLATELET ESTIMATE NORMAL
[2022-01-08] MEDS: TRAZODONE HCL 50MG TABLET PO SCH (22:05)
[2022-01-09] VITALS (10 sets, daily range): BP systolic 104–137; BP diastolic 57–92
[2022-01-09] MEDS: LORAZEPAM 2MG/ML CPJ IV PRN ×5 (00:16→21:17)
[2022-01-09] MEDS: SUCRALFATE 1 G/10 ML UDC NG SCH ×4 (00:16→17:05)
[2022-01-09] MEDS: IPRATROPIUM/ALBUTEROL 0.5-3(2.5)MG/3ML NEB HHN SCH ×2 (00:54→08:35)
[2022-01-09 06:25] LABS: CHLORIDE 106 mEq/L (98-107)
[2022-01-09 06:36] LABS: PHOSPHORUS 3.1 mg/dL (2.5-4.9)
[2022-01-09 06:42] LABS: HEMATOCRIT. 38.5 % (42.0-52.0); HEMOGLOBIN. 13.4 g/dL (14.0-18.0); MEAN CORPUSCULAR HEMOGLOBIN 30.7 pg (28.0-32.0); MEAN CORPUSCULAR VOLUME 88.4 fL (80.0-94.0); MEAN PLATELET VOLUME 8.7 fl (7.4-10.4); PLATELET 243 x1000/uL (130-400); RED BLOOD CELL COUNT 4.36 mill/uL (4.7-6.1)
[2022-01-09] MEDS: INSULIN LISPRO 100 UNITS/ML SUBCUT SCH (06:50)
[2022-01-09] MEDS: BLOOD SUGAR DIAGNOSTIC STRIP TEST SCH (07:12)
[2022-01-09] MEDS ORDERED: LORAZEPAM 2MG/ML CPJ IV PRN (07:30)
[2022-01-09] MEDS: LEVETIRACETAM 500MG PREMIX 100 ML IV SCH ×2 (08:14→20:55)
[2022-01-09] MEDS: PANTOPRAZOLE SODIUM 40 MG/VIAL IV SCH ×2 (08:14→20:54)
[2022-01-09] MEDS: THIAMINE HCL 100MG TABLET PO SCH (08:15)
[2022-01-09] MEDS: RIFAXIMIN 550 MG TABLET PO SCH ×2 (08:15→20:54)
[2022-01-09] MEDS: MULTIVITAMINS,THER W-MINERALS TABLET PO SCH (08:15)
[2022-01-09] MEDS: FOLIC ACID 1MG TABLET PO SCH (08:15)
[2022-01-09] MEDS: CHLORDIAZEPOXIDE 25MG CAPSULE PO SCH ×4 (08:15→20:54)
[2022-01-09] MEDS: MIDODRINE HCL 5MG TABLET PO SCH ×3 (08:16→17:06)
[2022-01-09] MEDS ORDERED: POTASSIUM CHLORIDE 20MEQ TABLET SR PO SCH (08:30)
[2022-01-09] MEDS: ENOXAPARIN 40MG/0.4ML SYR SUBCUT SCH (15:11)
[2022-01-09 15:26] LABS: PLATELET ESTIMATE NORMAL
[2022-01-09] MEDS: TRAZODONE HCL 50MG TABLET PO SCH (20:54)
[2022-01-09] MEDS ORDERED: DEXT 5%/0.9% NACL 1,000 ML IV SCH (22:45)
[2022-01-10] VITALS (8 sets, daily range): BP systolic 97–117; BP diastolic 47–80
[2022-01-10] MEDS: SUCRALFATE 1 G/10 ML UDC NG SCH ×5 (06:44→23:38)
[2022-01-10 07:25] LABS: BASOPHILS % 0.9 % (0.0-2.0); HEMATOCRIT. 39.4 % (42.0-52.0); HEMOGLOBIN. 13.4 g/dL (14.0-18.0); LYMPHOCYTES % 34.1 % (20.0-50.0); MEAN CORPUSCULAR HEMOGLOBIN 30.4 pg (28.0-32.0); MEAN CORPUSCULAR VOLUME 89.5 fL (80.0-94.0); MEAN PLATELET VOLUME 8.6 fl (7.4-10.4); MONOCYTES % 12.5 % (2.0-8.0); NEUTROPHILS % 50.5 % (40.0-76.0); PLATELET 274 x1000/uL (130-400); RED CELL DISTRIBUTION WIDTH 13.3 % (11.6-14.6)
[2022-01-10 07:43] LABS: CHLORIDE 108 mEq/L (98-107)
[2022-01-10 07:56] LABS: PHOSPHORUS 3.3 mg/dL (2.5-4.9)
[2022-01-10] MEDS: FOLIC ACID 1MG TABLET PO SCH (08:38)
[2022-01-10] MEDS: LEVETIRACETAM 500MG PREMIX 100 ML IV SCH ×2 (08:38→22:10)
[2022-01-10] MEDS: PANTOPRAZOLE SODIUM 40 MG/VIAL IV SCH ×2 (08:38→22:11)
[2022-01-10] MEDS: CHLORDIAZEPOXIDE 25MG CAPSULE PO SCH ×4 (08:38→22:10)
[2022-01-10] MEDS: MULTIVITAMINS,THER W-MINERALS TABLET PO SCH (08:38)
[2022-01-10] MEDS: THIAMINE HCL 100MG TABLET PO SCH (08:38)
[2022-01-10] MEDS: MIDODRINE HCL 5MG TABLET PO SCH ×3 (08:39→16:39)
[2022-01-10] MEDS ORDERED: POTASSIUM CHLORIDE 20MEQ TABLET SR PO NR (09:00)
[2022-01-10] MEDS ORDERED: THROAT LOZENGES-BENZOCAINE/MENTH/CETYLPYRD CL LOZENGES MM PRN (09:30)
[2022-01-10] MEDS ORDERED: LACTULOSE 20G/30ML UDC PO PRN (11:30)
[2022-01-10] MEDS: ENOXAPARIN 40MG/0.4ML SYR SUBCUT SCH (16:38)
[2022-01-10] MEDS ORDERED: CAPSAICIN 0.075% CREAM 60GM TOP PRN (18:30)
[2022-01-10] MEDS: TRAZODONE HCL 50MG TABLET PO SCH (22:10)
[2022-01-11] VITALS: BP 107/71
[2022-01-11 04:00] VITALS: BP 131/65
[2022-01-11] MEDS: SUCRALFATE 1 G/10 ML UDC NG SCH ×2 (05:53→14:57)
[2022-01-11] MEDS: ACETAMINOPHEN 650MG/20.3ML UDC PO PRN (05:53)
[2022-01-11] MEDS: LORAZEPAM 2MG/ML CPJ IV PRN (06:54)
[2022-01-11 07:29] LABS: BASOPHILS % 0.6 % (0.0-2.0); EOSINOPHILS % 1.7 % (0.0-5.0); HEMATOCRIT. 38.2 % (42.0-52.0); LYMPHOCYTES % 28.3 % (20.0-50.0); MEAN CORPUSCULAR HEMOGLOBIN 30.4 pg (28.0-32.0); MEAN CORPUSCULAR VOLUME 89.1 fL (80.0-94.0); MEAN PLATELET VOLUME 8.7 fl (7.4-10.4); MONOCYTES % 9.8 % (2.0-8.0); NEUTROPHILS % 59.6 % (40.0-76.0); PLATELET 297 x1000/uL (130-400); RED BLOOD CELL COUNT 4.28 mill/uL (4.7-6.1); RED CELL DISTRIBUTION WIDTH 13.4 % (11.6-14.6)
[2022-01-11 07:54] LABS: CHLORIDE 106 mEq/L (98-107)
[2022-01-11 08:00] VITALS: BP 99/66
[2022-01-11 08:00] LABS: PHOSPHORUS 2.9 mg/dL (2.5-4.9)
[2022-01-11] MEDS: PANTOPRAZOLE SODIUM 40 MG/VIAL IV SCH (09:52)
[2022-01-11] MEDS: CHLORDIAZEPOXIDE 25MG CAPSULE PO SCH ×2 (09:53→14:53)
[2022-01-11] MEDS: MIDODRINE HCL 5MG TABLET PO SCH ×2 (09:54→14:54)
[2022-01-11] MEDS: THIAMINE HCL 100MG TABLET PO SCH (09:54)
[2022-01-11] MEDS: MULTIVITAMINS,THER W-MINERALS TABLET PO SCH (09:54)
[2022-01-11] MEDS: FOLIC ACID 1MG TABLET PO SCH (09:54)
[2022-01-11] MEDS: LEVETIRACETAM 500MG PREMIX 100 ML IV SCH (09:55)
[2022-01-11] MEDS ORDERED: POTASSIUM CHLORIDE 20MEQ TABLET SR PO NR ×2 (10:00→12:00)
[2022-01-11] MEDS ORDERED: PANT40TA51 MT (10:02)
[2022-01-11] MEDS ORDERED: TRAZ-251 PO (10:02)
[2022-01-11] MEDS ORDERED: LORA-249 MT (10:02)
[2022-01-11] MEDS ORDERED: MULT-1146 MT (10:02)
[2022-01-11] MEDS ORDERED: MIDO5TAB4 PO (10:02)
[2022-01-11] MEDS ORDERED: FOLI-43 PO (10:02)
[2022-01-11] MEDS ORDERED: THIA100T72 PO (10:02)
[2022-01-11] MEDS ORDERED: L25 MT (10:02)
[2022-01-11 12:00] VITALS: BP 100/65
[2022-01-11] MEDS: ENOXAPARIN 40MG/0.4ML SYR SUBCUT SCH (14:54)
[2022-01-11 15:16] VITALS: BP 100/65
== END 2022-01-11 16:10 | disposition home or self-care (01) | DRG 720 ==
LOC: ER 08:57 → EDBEDREQSVC 10:37 → EDBEDREQTM 10:37 → EDBEDREQ 10:37 → ENRESERV 10:58 → MICUNO 11:09 → EDBEDREQ 11:15 → EDBEDREQTM 11:15 → 3WST 01-07 18:40 → 6EST 01-10 14:22
PROVIDERS: ADMIT Internal Medicine; ATTEND Internal Medicine
PROC: 5A1955Z Respiratory Ventilation, Greater than 96 Consecutive Hours (ICD-10-PCS; principal; 2022-01-01)
PROC: 5A12012 Performance of Cardiac Output, Single, Manual (ICD-10-PCS; 2022-01-01)
PROC: 5A2204Z Restoration of Cardiac Rhythm, Single (ICD-10-PCS; 2022-01-01)
PROC: 06HY33Z Insertion of Infusion Device into Lower Vein, Percutaneous Approach (ICD-10-PCS; 2022-01-01)
PROC: B54BZZA Ultrasonography of Right Lower Extremity Veins, Guidance (ICD-10-PCS; 2022-01-01)
PROC: 0BH17EZ Insertion of Endotracheal Airway into Trachea, Via Natural or Artificial Opening (ICD-10-PCS; 2022-01-01)
PROC: 02HV33Z Insertion of Infusion Device into Superior Vena Cava, Percutaneous Approach (ICD-10-PCS; 2022-01-05)
PROC: B518ZZA Fluoroscopy of Superior Vena Cava, Guidance (ICD-10-PCS; 2022-01-05)
DX: A41.9 Sepsis, unspecified organism (principal); I46.9 Cardiac arrest, cause unspecified; J96.01 Acute respiratory failure with hypoxia; N17.0 Acute kidney failure with tubular necrosis; J69.0 Pneumonitis due to inhalation of food and vomit; G93.40 Encephalopathy, unspecified; R65.21 Severe sepsis with septic shock; K76.6 Portal hypertension; E83.39 Other disorders of phosphorus metabolism; I27.20 Pulmonary hypertension, unspecified; E44.0 Moderate protein-calorie malnutrition; G40.909 Epilepsy, unspecified, not intractable, without status epilepticus; D64.9 Anemia, unspecified; I34.0 Nonrheumatic mitral (valve) insufficiency; E16.2 Hypoglycemia, unspecified; R74.01 Elevation of levels of liver transaminase levels; F13.10 Sedative, hypnotic or anxiolytic abuse, uncomplicated; E87.2 Acidosis; F14.10 Cocaine abuse, uncomplicated; F41.9 Anxiety disorder, unspecified; G47.00 Insomnia, unspecified; F10.10 Alcohol abuse, uncomplicated; Z20.822 Contact with and (suspected) exposure to COVID-19; Y90.9 Presence of alcohol in blood, level not specified; F12.10 Cannabis abuse, uncomplicated; R73.9 Hyperglycemia, unspecified; K74.60 Unspecified cirrhosis of liver; E87.6 Hypokalemia; D50.9 Iron deficiency anemia, unspecified; I21.4 Non-ST elevation (NSTEMI) myocardial infarction; Z79.899 Other long term (current) drug therapy; Z71.41 Alcohol abuse counseling and surveillance of alcoholic; Z71.51 Drug abuse counseling and surveillance of drug abuser; Z68.26 Body mass index [BMI] 26.0-26.9, adult; I25.2 Old myocardial infarction; Z95.828 Presence of other vascular implants and grafts
CPT/HCPCS: 36415; 36600; 71045; 71275; 74174; 76700; 76937; 80048; 80053; 80061; 80076; 80202; 80305; 80320; 81003; 82140; 82150; 82248; 82330; 82375; 82533; 82550; 82553; 82607; 82728; 82746; 82805; 82962; 83540; 83550; 83605; 83735; 84100; 84145; 84439; 84443; 84478; 84484; 85025; 86140; 86705; 86709; 86803; 86850; 86900; 87070; 87106; 87340; 87426; 87804; 92610; 93005; 93306; 93970; 94002; 94003; 94640; 97112; 97116; 97162; 97166; 97530; 97535; 99291; C1725; C9113; J0153; J0282; J1650; J1815; J1953; J2060; J2175; J2250; J2370; J2405; J2543; J2704; J3010; J3370; J3411; J3475; J3480; J3490; J7030; J7040; J7042; J7050; J7060; J7070; J7608; Q9967; A4315; G0480

== ENCOUNTER 2022-04-23 05:06 | Emergency (ER) | payer MEDICAID, OTHER ==
[~2022-04-23] VITALS: Ht 170.2 cm; Wt 100.0 kg
[~2022-04-23 05:06] MED LIST changes: -ADENOSINE 3 MG/ML 2ML VIAL IV ONE; -AMIODARONE HCL 50MG/ML 3ML VIAL IV ONE; -CALCIUM CHLORIDE 1GM/10ML SYR IV ONE; -CHLO25CA10 MT; -DEXTROSE 50% WATER 50ML SYRINGE IV ONE; -EPINEPHRINE 0.1MG/ML (1:10,000) 10ML SYR ONE; +L25 MT; +LORA-249 MT; -MAGNESIUM SULFATE 4G IN WATER 100ML PREMIX IV ONE; +MIDO5TAB4 PO; +MULT-1146 MT; +PANT40TA51 MT; -PROT40 PO; -SODIUM BICARBONATE 8.4% 1 MEQ/ML 50ML SYR IV ONE; -THIA100T72 MT; +TRAZ-251 PO
[2022-04-23] MEDS ORDERED: SODIUM CHLORIDE 0.9% 1,000 ML IV ONE (06:00)
[2022-04-23] MEDS ORDERED: LORAZEPAM 2MG/ML CPJ IV ONE ×2 (06:00→11:30)
[2022-04-23] MEDS ORDERED: LEVETIRACETAM 1000MG PREMIX 100 ML IV ONE (06:00)
[2022-04-23 06:14] LABS: BASOPHILS % 0.2 % (0.0-2.0); EOSINOPHILS % 0.1 % (0.0-5.0); HEMATOCRIT. 45.4 % (42.0-52.0); HEMOGLOBIN. 15.5 g/dL (14.0-18.0); LYMPHOCYTES % 14.6 % (20.0-50.0); MEAN CORPUSCULAR HEMOGLOBIN 29.5 pg (28.0-32.0); MEAN CORPUSCULAR VOLUME 86.8 fL (80.0-94.0); MEAN PLATELET VOLUME 8.8 fl (7.4-10.4); MONOCYTES % 10.5 % (2.0-8.0); NEUTROPHILS % 74.6 % (40.0-76.0); PLATELET 222 x1000/uL (130-400); RED BLOOD CELL COUNT 5.23 mill/uL (4.7-6.1); RED CELL DISTRIBUTION WIDTH 13.2 % (11.6-14.6)
[2022-04-23 06:23] LABS: CHLORIDE 100 mEq/L (98-107)
[2022-04-23 06:36] LABS: ETHANOL BLOOD < 10 mg/dL
[2022-04-23] MEDS ORDERED: MORPHINE SULFATE 4 MG/ML CPJ (NOT FOR IM USE) IV ONE (08:15)
[2022-04-23] MEDS ORDERED: ONDANSETRON HCL 4MG/2ML INJ IV ONE (08:15)
[2022-04-23] MEDS ORDERED: ONDANSETRON HCL 4MG/2ML INJ IV SCH (09:30)
[2022-04-23] MEDS ORDERED: MORPHINE SULFATE 4 MG/ML CPJ (NOT FOR IM USE) IV SCH (09:45)
[2022-04-23] MEDS ORDERED: POTASSIUM CHLORIDE 20MEQ TABLET SR PO ONE (09:45)
[2022-04-23 10:00] VITALS: BP 118/76
[2022-04-23] MEDS ORDERED: MAGNESIUM/ALUMINUM HYDROXIDE/SIMETHICONE 30ML UDC PO ONE (10:45)
[2022-04-23] MEDS ORDERED: FAMOTIDINE 20MG/2ML VIAL IV ONE (10:45)
[2022-04-23 10:54] LABS: CLARITY URINE CLEAR (CLEAR); COLOR URINE YELLOW (YELLOW); KETONES URINE 3+ (NEGATIVE); LEUKOCYTE ESTERASE URINE NEGATIVE (NEGATIVE); NITRITE URINE NEGATIVE (NEGATIVE); OCCULT BLOOD URINE NEGATIVE (NEGATIVE); PH URINE 7.5 (4.5-8.0); PROTEIN URINE 1+ (NEGATIVE); SPECIFIC GRAVITY URINE 1.016 (1.005-1.030)
[2022-04-23] MEDS ORDERED: CHLORDIAZEPOXIDE 25MG CAPSULE PO ONE (11:30)
[2022-04-23] MEDS ORDERED: KEPP500 MT (11:31)
[2022-04-23] MEDS ORDERED: L25 MT (11:31)
[2022-04-23 11:37] LABS: *AMPHETAMINES SCREEN URINE NEGATIVE (NEGATIVE); *BARBITURATES SCREEN URINE NEGATIVE (NEGATIVE); *BENZODIAZEPINES SCREEN URINE PRESUMTIVE POSITIVE (NEGATIVE); *COCAINE SCREEN URINE NEGATIVE (NEGATIVE); CANNABINOID URINE SCREEN PRESUMTIVE POSITIVE (NEGATIVE); METHADONE URINE SCREEN NEGATIVE (NEGATIVE); OPIATES URINE SCREEN NEGATIVE (NEGATIVE); PHENCYCLIDINE URINE SCREEN NEGATIVE (NEGATIVE)
[2022-04-23] MEDS ORDERED: IBUP-2028 MT (11:38)
== END 2022-04-23 11:48 | disposition home or self-care (01) ==
LOC: ER 05:17
DX: R56.9 Unspecified convulsions (principal); F10.239 Alcohol dependence with withdrawal, unspecified; F10.229 Alcohol dependence with intoxication, unspecified; Z79.899 Other long term (current) drug therapy; Z98.890 Other specified postprocedural states; Y90.0 Blood alcohol level of less than 20 mg/100 ml
CPT/HCPCS: 36415; 70450; 80053; 80305; 80320; 81003; 85025; 96365; 96366; 96375; 96376; 99285; J1953; J2060; J2270; J2405; J3490; J7030; Z7610; G0480

== ENCOUNTER 2022-08-18 15:19 | Emergency (ER) | payer OTHER ==
[~2022-08-18] VITALS: Ht 175.3 cm; Wt 84.0 kg
[~2022-08-18 15:19] MED LIST changes: +IBUP-2028 MT
[2022-08-18] MEDS ORDERED: SODIUM CHLORIDE 0.9% 1,000 ML IV ONE (16:00)
[2022-08-18] MEDS ORDERED: LORAZEPAM 1MG TABLET PO ONE (16:00)
[2022-08-18] MEDS ORDERED: LEVETIRACETAM 1000MG PREMIX 100 ML IV ONE (16:00)
[2022-08-18 16:29] LABS: BASOPHILS % 0.5 % (0.0-2.0); EOSINOPHILS % 0.3 % (0.0-5.0); HEMATOCRIT. 46.9 % (42.0-52.0); HEMOGLOBIN. 15.8 g/dL (14.0-18.0); MEAN CORPUSCULAR HEMOGLOBIN 30.1 pg (28.0-32.0); MEAN CORPUSCULAR VOLUME 89.6 fL (80.0-94.0); MEAN PLATELET VOLUME 9.7 fl (7.4-10.4); MONOCYTES % 5.8 % (2.0-8.0); NEUTROPHILS % 81.4 % (40.0-76.0); PLATELET 160 x1000/uL (130-400); RED BLOOD CELL COUNT 5.24 mill/uL (4.7-6.1); RED CELL DISTRIBUTION WIDTH 13.3 % (11.6-14.6)
[2022-08-18 16:39] LABS: CHLORIDE 103 mEq/L (98-107)
[2022-08-18 17:31] LABS: CLARITY URINE CLEAR (CLEAR); COLOR URINE YELLOW (YELLOW); KETONES URINE 1+ (NEGATIVE); LEUKOCYTE ESTERASE URINE NEGATIVE (NEGATIVE); NITRITE URINE NEGATIVE (NEGATIVE); OCCULT BLOOD URINE NEGATIVE (NEGATIVE); PH URINE 6.5 (4.5-8.0); PROTEIN URINE NEGATIVE (NEGATIVE); SPECIFIC GRAVITY URINE 1.003 (1.005-1.030); UROBILINOGEN URINE 0.2 E.U./dL (0.2-1.0)
[2022-08-18 17:52] LABS: *AMPHETAMINES SCREEN URINE NEGATIVE (NEGATIVE); *BARBITURATES SCREEN URINE NEGATIVE (NEGATIVE); *BENZODIAZEPINES SCREEN URINE PRESUMTIVE POSITIVE (NEGATIVE); *COCAINE SCREEN URINE NEGATIVE (NEGATIVE); CANNABINOID URINE SCREEN PRESUMTIVE POSITIVE (NEGATIVE); METHADONE URINE SCREEN NEGATIVE (NEGATIVE); OPIATES URINE SCREEN NEGATIVE (NEGATIVE); PHENCYCLIDINE URINE SCREEN NEGATIVE (NEGATIVE)
[2022-08-18] MEDS ORDERED: ACETAMINOPHEN 325MG TABLET PO ONE (18:45)
[2022-08-18 20:16] VITALS: BP 128/71
== END 2022-08-18 20:18 | disposition home or self-care (01) ==
LOC: ER 15:19
DX: R53.1 Weakness (principal); R42 Dizziness and giddiness; F10.229 Alcohol dependence with intoxication, unspecified; Y90.0 Blood alcohol level of less than 20 mg/100 ml
CPT/HCPCS: 36415; 80053; 80305; 81003; 85025; 93005; 96365; 99284; J1953; J7030

== ENCOUNTER 2022-08-21 12:03 | Emergency (ER) | payer OTHER ==
[~2022-08-21] VITALS: Ht 170.2 cm; Wt 77.0 kg
[2022-08-21] MEDS ORDERED: LEVETIRACETAM 1000MG PREMIX 100 ML IV ONE (12:15)
[2022-08-21] MEDS ORDERED: LORAZEPAM 2MG/ML CPJ IV ONE ×2 (12:30→17:45)
[2022-08-21 12:47] LABS: BASOPHILS % 0.4 % (0.0-2.0); HEMATOCRIT. 50.7 % (42.0-52.0); HEMOGLOBIN. 17.3 g/dL (14.0-18.0); LYMPHOCYTES % 7.4 % (20.0-50.0); MEAN CORPUSCULAR HEMOGLOBIN 30.1 pg (28.0-32.0); MEAN CORPUSCULAR VOLUME 88.6 fL (80.0-94.0); MEAN PLATELET VOLUME 9.5 fl (7.4-10.4); MONOCYTES % 6.4 % (2.0-8.0); NEUTROPHILS % 85.8 % (40.0-76.0); PLATELET 197 x1000/uL (130-400); RED BLOOD CELL COUNT 5.73 mill/uL (4.7-6.1); RED CELL DISTRIBUTION WIDTH 13.1 % (11.6-14.6)
[2022-08-21 13:22] LABS: CHLORIDE 94 mEq/L (98-107); ETHANOL BLOOD < 10 mg/dL
[2022-08-21 14:21] LABS: CLARITY URINE CLEAR (CLEAR); COLOR URINE YELLOW (YELLOW); KETONES URINE 4+ (NEGATIVE); LEUKOCYTE ESTERASE URINE NEGATIVE (NEGATIVE); NITRITE URINE NEGATIVE (NEGATIVE); OCCULT BLOOD URINE NEGATIVE (NEGATIVE); PROTEIN URINE 1+ (NEGATIVE)
[2022-08-21] MEDS ORDERED: FOLIC ACID 1 MG, THIAMINE HCL 100 MG, MVI, ADULT NO.1 10 ML in DEXTROSE 5% WATER 1,000 ML IV ONE ×4 (15:00)
[2022-08-21 15:16] LABS: *AMPHETAMINES SCREEN URINE NEGATIVE (NEGATIVE); *BARBITURATES SCREEN URINE NEGATIVE (NEGATIVE); *BENZODIAZEPINES SCREEN URINE PRESUMTIVE POSITIVE (NEGATIVE); *COCAINE SCREEN URINE NEGATIVE (NEGATIVE); CANNABINOID URINE SCREEN PRESUMTIVE POSITIVE (NEGATIVE); METHADONE URINE SCREEN NEGATIVE (NEGATIVE); OPIATES URINE SCREEN NEGATIVE (NEGATIVE); PHENCYCLIDINE URINE SCREEN NEGATIVE (NEGATIVE)
[2022-08-21 18:08] VITALS: BP 113/72
== END 2022-08-21 18:09 | disposition short-term general hospital (02) ==
LOC: ER 12:03 → CANBEDREQ 08-22 07:06
DX: F10.239 Alcohol dependence with withdrawal, unspecified (principal); E87.29 Other acidosis; G40.909 Epilepsy, unspecified, not intractable, without status epilepticus; F41.9 Anxiety disorder, unspecified; F13.10 Sedative, hypnotic or anxiolytic abuse, uncomplicated; Z20.822 Contact with and (suspected) exposure to COVID-19; Z87.891 Personal history of nicotine dependence; Y90.0 Blood alcohol level of less than 20 mg/100 ml
CPT/HCPCS: 36415; 80053; 80305; 80320; 81003; 82962; 85025; 87426; 96365; 96366; 96367; 96375; 99285; C9803; J1953; J2060; J3411; J3490; J7070; G0480